=== PATIENT | male | born 2000 | race Caucasian/White ===

== ENCOUNTER 2024-12-06 00:56 | Emergency (ER) | payer MEDICAID, SELFPAY ==
--- NOTE | ~2024-12-06 | CT_ITS ---
Non-contrast Head CT History: Paresthesias Technique: Axial non-contrast imaging of the brain was performed. Dose reduction technique was used on this scan by utilizing automated exposure control and iterative reconstruction technique. The dose -length product (DLP) was 756.67 mGy-cm. Findings: There is no evidence of intracranial hemorrhage, mass lesion, or acute infarct. Brain par enchyma appears normal. The ventricles and subarachnoid spaces are normal in size. The calvarium ap pears normal. The visualized paranasal sinuses and mastoid air cells are clear. Impression: No significant abnormality seen. Reviewed, dictated and finalized at location . Impression: No significant abnormality seen.
[2024-12-06 00:57] VITALS: BP 140/82; PULSE 69; RESP 14; TEMP 36.8; O2SAT 99
--- NOTE | 2024-12-06 01:26 | ED_ITS ---
HPI - General Adult General Chief complaint: Recheck/Abnormal Lab/Rx Stated complaint: MS Flare- left arm numb Time Seen by Provider: 12/06/24 01:26 History of Present Illness HPI narrative: This is a 24-year-old male with history multiple sclerosis presenting for paresthesias. Patient states over over last 5 days he has been having brief episodes of numbness over his left leg and left arm. The areas of numbness or small patches and do not follow a dermatomal distribution. He does not have any visual changes, difficulty urinating or weakness to any extremity. Patient has a neurologist to follows with but was unable to reach him today. Patient is not happy with neurologist is requesting a new neurologist. Patient was seen at [facility] earlier today but left because the wait was too long. Exam Narrative: APPEARANCE: No apparent distress. Head: atraumatic. EYES: EOMI, NOSE: Atraumatic NECK: Trachea midline RESPIRATORY: No increased rate of breathing, speaking in full sentences. CARDIOVASCULAR: RRR, ABDOMINAL: Non-distended MUSCULOSKELETAl: No obvious deformities NEURO: Alert. Cranial nerves 2-12 grossly intact. motor function cerebellar function intact for 4 extremities. Patient has small patches of numbness over the left dorsal forearm. Decreased sensation over the left leg. Gait exam was normal. SKIN:: Warm, dry. Normal color PSYCHIATRIC: Normal affect Course Vital Signs Vital signs: Vital Signs Temperature 98.2 F 12/06/24 00:57 Pulse Rate 69 12/06/24 00:57 Respiratory Rate 14 12/06/24 00:57 Blood Pressure 140/82 12/06/24 00:57 Pulse Oximetry 99 12/06/24 00:57 Oxygen Delivery Room Air 12/06/24 00:57 Temperature 98.2 F 12/06/24 00:57 Pulse Rate 69 12/06/24 00:57 Respiratory Rate 14 12/06/24 00:57 Blood Pressure 140/82 12/06/24 00:57 Pulse Oximetry 99 12/06/24 00:57 Oxygen Delivery Room Air 12/06/24 00:57 Medical Decision Making [facility] Narrative Medical decision making narrative: -Course: 24-year-old male history of MS presenting for paresthesias of the left arm and leg. Mildly decreased sensation in the exam. Motor function intact. The rest of his neurologic exam was also normal. I reviewed the lab work that he obtained at [facility] including a CBC, CMP phosphorus magnesium and TSH in all were within normal limits. CT head was obtained which negative for any acute process. Patient will be discharged with a Medrol Dosepak see if improves his symptoms. He has requested referral to a neurologist as he does not get along with his current doctor. This was provided. Patient given return precautions. -DDX includes but is not limited to: MS flare, peripheral neuropathy, intracranial hemorrhage -Co-morbidities complicating care: MS -External Chart Review: Review of laboratory studies from [facility], review of MRI from September 2024 Vital Signs Vital Signs: Vital Signs Temperature 98.2 F 12/06/24 00:57 Pulse Rate 69 12/06/24 00:57 Respiratory Rate 14 12/06/24 00:57 Blood Pressure 140/82 12/06/24 00:57 Pulse Oximetry 99 12/06/24 00:57 Oxygen Delivery Room Air 12/06/24 00:57 Temperature 98.2 F 12/06/24 00:57 Pulse Rate 69 12/06/24 00:57 Respiratory Rate 14 12/06/24 00:57 Blood Pressure 140/82 12/06/24 00:57 Pulse Oximetry 99 12/06/24 00:57 Oxygen Delivery Room Air 12/06/24 00:57 Discharge Plan Discharge Clinical Impression: Arm paresthesia, left, Leg paresthesia Patient Disposition: Home Condition: Stable Instructions: Antibiotic Form, Paresthesia (ED) Additional Instructions: Please take the Medrol Dosepak as instructed. Please follow-up with your neurologist with the neurologist listed below for further management. If you develop any new or worsening symptoms you can return to ED for re-evaluation. Patient Language: Wolof Prescriptions: New methylprednisolone [Medrol (Can)] 4 mg tablets,dose pack See Rx Instructions .ROUTE .COMPLEX Qty: 21 0RF Rx Instructions: for 6 days Follow-up/Referrals: Jessica Juarez MD [Physician] - 1 Week (MS patient. Seeking new neurologist) PHYSICIAN,DIRECTOR INSTRUCTIONAL MATERIAL [Primary Care Provider] -
--- OUTSIDE RECORDS SUMMARY | 2024-12-06 01:59 | XMS_ITS | Referral Summary ---
Author Organization [facility] Physician Office Building [address] [place] [id number] Care Team Providers Care Fact Checker Name Role Phone Sherley ROMEO MD, Edson MontoyaAbdirizak Unavailable Dago Colunga MD Primary Care Provide r Encounters Date Type Department Care Team Description 12/05/2024 11:45 PM CDT - 12/05/2024 11:46 PM CDT Emergency [facility] Emergency Department [address] [place] [id number] Discharge Disposition: Left Against Medical Advice 12/05/2024 Nurse Triage Family Care at [address] [place] [phone] Dago Colunga MD 11/27/2024 3:20 PM CDT [facility] [address] [place] [address] Medical Office Building [address] [place] [phone] Nica Kim NP Tinnitus, unspecified laterality (Primary Dx); Multiple sclerosis (HCC); Stress 11/27/2024 2:45 PM CDT Procedure visit [facility] Otolaryngology [address] [place] [address] Medical Office Building 2 [address] [place] [address] Estrada Alaniz Au.D. Dizziness 09/22/2024 10:06 AM LABORATORY CLERK - 09/22/2024 11:59 PM LABORATORY CLERK Hospital Encounter [facility] Radiology [address] [place] [address] Edson Lepe II, MD Multiple sclerosis (HCC) Discharge Disposition: Discharge to home or self care 09/18/2024 Telephone [facility] [address] [facility] [address] [place] [address] Edson Lepe II, MD MRI Authorization 09/15/2024 Orders Only [facility] Otolaryngology [address] [facility] Advanced Medicine 11th [place] [address] [place] [address] Meghan Deal Au.D. Dizziness (Primary Dx) 09/15/2024 Telephone [facility] Otolaryngology [address] [facility] 11th [place] [address] [place] [address] Meghan Deal Au.D. 09/13/2024 Telephone [facility] ENT [address] [facility] 11th [place] [address] [place] [address] Neal, Elicia, from Last 3 Months Allergies Active Allergy Reactions Criticality Noted Date Comments Cat Dander Sneezing Low 07/14/2021 Dog Dander Sneezing Low 07/14/2021 House Dust Sneezing Low 07/14/2021 Pollen Extracts Sneezing Low 07/14/2021 Spider Venom Rash Medium 07/14/2021 Venom-Wasp Shortness of breath High 07/14/2021 Medications teriflunomide 14 mg tabletIndication s:relapsing form of multiple sclerosis Take 1 tablet (14 mg total) by mouth daily 90 tablet 2 02/23/2024 Active omega 1-zko-hxg-fish oil (Fish OiL) 1,000 (120-180) mg capsule Take by mouth daily Active cholecalciferol, vitamin D3, 1,000 unit tablet,chewable Take 1 tablet/chew tab by mouth daily Active Active Problems Problem Noted Date Diagnosed Date Obesity (BMI 30-39.9) 08/21/2024 Assessment & Plan (08/21/2024 8:54 AM LABORATORY CLERK): BMI follow-up: Education provided Encounter for well adult exam without abnormal f indings 02/17/2022 Assessment & Plan (02/17/2022 9:33 PM CDT): Reviewed current problem list and reconciled Meds. Patient is up-to-date on his immunizations. Multiple sclerosis 05/29/2021 Assessment & Plan (08/21/2024 8:54 AM LABORATORY CLERK): Management by Neurology teriflunomide 14 mg tablet daily Assessment & Plan (02/17/2023 9:45 PM CDT): Patient under the care of neurologist. However patient has been out his current Meds due to cost and loss of insurance coverage. Discussed referral to MS clinic at [facility]. Patient reports episodes of weakness due to lack of Meds. Assessment & Plan (02/17/2022 9:35 PM CDT): Patient under the care of neurologist. Reviewed current Meds. Vision disturbance 05/28/2021 Assessment & Plan (02/17/2022 9:34 PM CDT): Patient under the care of blast furnace keeper helper. Immunizations Immunization Administration Dates Next Due Influenza, Quadrivalent, Spl it, Preservative Free, Intramuscular 07/25/2023,07/22/2022,05/31/2021 Influenza, Unspecified 03/22/2024 Meningococcal B, unspecified 03/10/2018 Moderna SARS-CoV-2 Monovalen t Vaccination (12+ YRS) 08/13/2021 Tdap 07/22/2022 Varicella 03/10/2018,06/27/2013 Social History Tobacco Use Types Packs/Day Years Used Date Smoking Tobacco: Never Smokeless Tobacco: Never Tobacco Cessation:Counseling Given: Not Answered Alcohol Use Standard Drinks/Week Comments No 0 (1 standard drink = 0.6 oz pur e alcohol) Social Connection and Isolation Panel [NHANES] A nswer Date Recorded In a typical week, how many times do you talk on the phone with family, friends, or neighbors? Once a week 06/01/2021 How often do you get together with friends or re latives? Once a week 06/01/2021 How often do you attend adventist or buddhist serv ices? Never 06/01/2021 Do you belong to any clubs o r organizations such as adventist groups, unions, fraternal or athletic groups, or school groups? No 06/01/2021 How often do you attend meet ings of the clubs or organizations you belong to? Never 06/01/2021 Marital Status Not on file 06/01/2021 AUDIT-C Answer Date Recorded Q1: How often do you have a drink containing alcohol? Never 02/17/2023 Q2: How many drinks containi ng alcohol do you have on a typical day when you are drinking? Patient does not drink Q3: How often do you have si x or more drinks on one occasion? Never 02/17/2023 Overall Financial Resource Strain (CARDIA) Answe r Date Recorded How hard is it for you to pa y for the very basics like food, housing, medical care, and heating? Not very hard 06/01/2021 PHQ-2 Answer Date Recorded PHQ-2 Total Score 0 08/21/2024 Hunger Vital Sign Answer Date Recorded Within the past 12 months, y ou worried that your food would run out before you got the money to buy more. Never true 06/01/20 21 Within the past 12 months, t he food you bought just didn't last and you didn't have money to get more. Never true 06/01/2021 PRAPARE - Transportation Answer Date Re corded In the past 12 months, has l ack of transportation kept you from medical appointments or from getting medications? No 05/15 In the past 12 months, has l ack of transportation kept you from meetings, work, or from getting things needed for daily living? No 06/01/2021 Housing Stability Vital Sign Answer Bladimir e Recorded In the last 12 months, was t here a time when you were not able to pay the mortgage or rent on time? No 06/01/2021 Number of Places Lived in the Last Year Not on f ile 06/01/2021 In the last 12 months, was t here a time when you did not have a steady place to sleep or slept in a longterm (including now)? No 06/01/2021 PHQ-9 Answer Date Recorded PHQ-9 Total Score 0 08/21/2024 Personal Safety Answer Date Recorded Have you ever been in or are you currently in a harmful physical or emotional relationship or is someone making you feel afraid or unsafe? Denies 12/05/2024 Sex and Gender Information Value Date Recorded Sex Assigned at Not on file Legal Sex Male 9:21 AM LABORATORY CLERK Gender Identity Male 07/14/2021 9:18 AM LABORATORY CLERK Sexual Orientation Straight 07/14/2021 9: 18 AM LABORATORY CLERK Last Filed Vital Signs Vital Sign Reading Time Taken Comments Blood Pressure 130/71 12/05/2024 6:32 PM CDT Pulse 78 12/05/2024 6:32 PM CDT Temperature 36.7 C (98.1 F) 12/05/2024 6:32 PM CDT Respiratory Rate 20 12/05/2024 6:32 PM CDT Oxygen Saturation 98% 12/05/2024 6:32 PM CDT Inhaled Oxygen Concentration - - Weight 117.9 kg (260 lb) 12/05/2024 6:36 PM CDT Height 190.5 cm (6' 3 ) 12/05/2024 6:36 PM CDT Body Mass Index 32.5 12/05/2024 6:36 PM CDT Plan of Treatment Not on file Procedures Procedure Name Priority Date/Time Associated Diagnosis Comments EGFR STAT 12/05/2024 10:00 PM CDT DIFFERENTIAL AUTO STAT 12/05/2024 10: 00 PM CDT THYROID FUNCTION CASCADE STAT 12/05/2024 10:00 PM CDT PHOSPHORUS Routine 12/05/2024 10:00 PM CDT MAGNESIUM Routine 12/05/2024 10:00 PM CDT COMPREHENSIVE METABOLIC PANEL STAT 12/05/2024 10:00 PM CDT CBC WITH AUTO DIFFERENTIAL STAT 12/05/2024 10:[address] HEAD WO CONTRAST ED 12/05/2024 6 :39 PM CDT AUDBASE RESULTS 11/27/2024 2:54 PM CDT MRI BRAIN W WO CONTRAST Schedule Routine, Read Routine (OP Routine) 09/22/2024 11:08 AM LABORATORY CLERK Multiple sclerosis (HCC) HEPATITIS PANEL, ACUTE Routine 07/14/2021 10:25 AM LABORATORY CLERK Multiple sclerosis (HCC) from Last 3 Months or Most Recently Relevant to Health Maintenance Results * eGFR (12/05/2024 10:00 PM CDT) eGFR >90 >=60 mL/min/1. 73 m2 Comment: Interpretive Data Reference Interval Normal >/= 90 mL/min/1.73m2 Mildly decreased* 60 - 89 mL/min/1.73m2 Mildly to moderately decreased 45 - 59 mL/min/1.73m2 Moderately to severely decreased 30 - 44 mL/min/1.73m2 Severely decreased 15 - 29 mL/min/1.73m2 Kidney Failure < 15 mL/min/1.73m2 *Relative to young adult level Estimated glomerular filtration rate is determined by the 2020 CKD-EPI equation recommended by the National Kidney Foundation (A Unifying Approach to GFR Estimation: Recommendations of the NKF-ASK Task Force on Reassessing the Inclusion of Race in Diagnosing Kidney Disease, JASN 2020). The CKD-EPI equation should not be used for patients with unstable renal function and has not been validated in children and those over 70. Current interpretive data was last reviewed 2021. Blood 12/05/2024 10:0 0 PM CDT 12/05/2024 10:00 PM CDT us Johan COFFEY LAB BLOOD ORDERABLES Final Result JAYLEEN [address] Department [place] [address] * Differential, auto (12/05/2024 10:00 PM CDT) Neutrophil abs 4.26 1.50 - 6.50 K/cumm Imm gran abs 0.01 0.00 - 0.10 K/cumm [facility] Lymphocyte abs 2.86 0.80 - 3.30 K/cumm [facility] Monocyte abs 0.71 0.20 - 0.80 K/cumm [facility] Eosinophil abs 0.08 0.00 - 0.50 K/cumm [facility] Basophil abs 0.02 0.00 - 0.10 K/cumm [facility] Neutrophil pct 53.7 % [facility] Comment: Interpretive Data Percent cell count reference ranges are not reported, since discordance with absolute values may lead to misinterpretation of CBC data. Current Interpretive Data was last revised on 2017. Imm gran pct 0.1 % [facility] Comment: Interpretive Data Percent cell count reference ranges are not reported, since discordance with absolute values may lead to misinterpretation of CBC data. Current Interpretive Data was last revised on 2017. Lymphocyte pct 36.0 % [facility] Comment: Interpretive Data Percent cell count reference ranges are not reported, since discordance with absolute values may lead to misinterpretation of CBC data. Current Interpretive Data was last revised on 2017. Monocyte pct 8.9 % [facility] Comment: Interpretive Data Percent cell count reference ranges are not reported, since discordance with absolute values may lead to misinterpretation of CBC data. Current Interpretive Data was last revised on 2017. Eosinophil pct 1.0 % [facility] Comment: Interpretive Data Percent cell count reference ranges are not reported, since discordance with absolute values may lead to misinterpretation of CBC data. Current Interpretive Data was last revised on 2017. Basophil pct 0.3 % [facility] Comment: Interpretive Data Percent cell count reference ranges are not reported, since discordance with absolute values may lead to misinterpretation of CBC data. Current Interpretive Data was last revised on 2017. Blood 12/05/2024 10:0 0 PM CDT 12/05/2024 10:00 PM CDT Johan COFFEY LAB BLOOD ORDERABLES Final Result JAYLEEN [address] [place] [address] * Thyroid Function [place] (12/05/2024 10:00 PM CDT) Pathologist [facility] TSH 1.00 0.30 - 4.20 mcIUnit/mL Blood 12/05/2024 10:0 0 PM CDT 12/05/2024 10:00 PM CDT Johan COFFEY LAB BLOOD ORDERABLES Final Result Performing Organization Address City/[facility]/ZIP Co de Phone Number JAYLEEN LEAL [address] [place] [address] * CBC with auto differential (12/05/2024 10:00 PM CDT) Pathologist [facility] WBC 7.94 3.80 - 9.90 K/cumm Hgb 14.3 13.0 - 17.5 g/dL [facility] CH Hct 42.1 38.9 - 50.3 % [facility] Plt 250 150 - 400 K/cumm [facility] MPV 10.2 9.1 - 12.3 fL [facility] CH RBC 4.74 4.30 - 5.80 M/cumm [facility] MCV 88.8 81.3 - 96.4 fL [facility] MCH 30.2 27.1 - 33.3 pg [facility] MCHC 34.0 32.3 - 35.7 g/dL [facility] RDW CV 11.5 11.1 - 14.9 % [facility] CH RDW SD 36.7 35.7 - 48.1 fL [facility] CH NRBC abs 0.00 0.00 - 0.01 K/cumm [facility] Blood Venous blood specimen / Unknown 12/05/2024 10:00 PM CDT 12/05/2024 10:00 PM CDT Johan COFFEY LAB BLOOD ORDERABLES Final Result Performing Organization Address City/[facility]/ZIP Co de Phone Number JAYLEEN LEAL [address] [place] [address] * Phosphorus (12/05/2024 10:00 PM CDT) [facility] Phosphorus, pl 3.7 2.3 - 4.5 mg/dL Blood 12/05/2024 10:0 0 PM CDT 12/05/2024 10:00 PM CDT Johan COFFEY LAB BLOOD ORDERABLES Final Result Performing Organization Address City/[facility]/ZIP Co de Phone Number JAYLEEN [id number] [facility] [place] [address] * Magnesium (12/05/2024 10:00 PM CDT) [facility] Magnesium 2.2 1.4 - 2.5 mg/dL Blood 12/05/2024 10:0 0 PM CDT 12/05/2024 10:00 PM CDT Johan COFFEY LAB BLOOD ORDERABLES Final Result Performing Organization Address [facility] de Phone Number [facility] [address] [facility] [place] [address] * Comprehensive metabolic panel (12/05/2024 10:00 PM CDT) [facility] Sodium 140 135 - 145 mmol/L Potassium, pl 4.4 3.3 - 4.9 mmol/L [facility] Chloride 104 97 - 110 mmol/L [facility] CO2 24 22 - 32 mmol/L [facility] Anion gap 12 2 - 15 mmol/L [facility] BUN 21 6 - 25 mg/dL [facility] Creatinine 0.95 0.80 - 1.30 mg/dL [facility] Glucose 92 70 - 199 mg/dL [facility] Comment: Interpretive Data Fasting glucose >/= 126 mg/dl is diagnostic for diabetes. Fasting is defined as no caloric intake for at least 8 hours. Fasting glucose between 100 mg/dl to 125 mg/dl is diagnostic of prediabetes. In a patient with classic symptoms of hyperglycemia or hyperglycemic crisis, a random glucose >/= 200 mg/dl is diagnostic for diabetes. In the absence of unequivocal hyperglycemia, results should be confirmed by repeat testing. The classification and Diagnosis of Diabetes Diabetes Care 202; 46: S19-S40. Current interpretive data was last revised 2022. Calcium 9.6 8.5 - 10.3 mg/dL [facility] Bilirubin, total 0.7 0.1 - 1.2 mg/dL [facility] Protein, pl 7.3 6.5 - 8.5 g/dL [facility] Albumin 4.4 3.5 - 5.0 g/dL [facility] Alk phos 84 40 - 130 Units/L [facility] ALT 16 7 - 55 Units/L [facility] AST 19 10 - 50 Units/L [facility] Blood 12/05/2024 10:0 0 PM CDT 12/05/2024 10:00 PM CDT us Johan COFFEY LAB [place] [address] [address] Department [place] [address] * CT Head WO Contrast (12/05/2024 6:39 PM CDT) Anatomical Region Laterality Modality Head and Neck N/A Computed Tomogra phy 12/05/2024 6:55 PM CDT Impressions 12/05/2024 6:55 PM CDT No acute intracranial findings. Electronically signed by: Johan Castellanos II, D.O. Narrative 12/05/2024 6:55 PM CDT EXAMINATION: CT HEAD WO CONTRAST DATE: 12/05/2024 6:40 PM HISTORY: Paresthesias. COMPARISON: MRI of the brain dated 09/22/2024. TECHNIQUE: Transaxial computed tomographic images of the head were obtained without intravenous contrast. FINDINGS: No mass, mass effect, midline shift, or hemorrhage is demonstrated. Rincon-white differentiation is well preserved. No ventriculomegaly. The orbits and mastoid air cells are normal in appearance. Mild chronic mucosal inflammatory changes of the paranasal sinuses. Extracalvarial soft tissues are unremarkable. Procedure Note Johan Castellanos II, - 12/05/2024 EXAMINATION: CT HEAD WO CONTRAST DATE: 12/05/2024 6:40 PM HISTORY: Paresthesias. COMPARISON: MRI of the brain dated 09/22/2024. TECHNIQUE: Transaxial computed tomographic images of the head were obtained without intravenous contrast. FINDINGS: No mass, mass effect, midline shift, or hemorrhage is demonstrated. Rincon-white differentiation is well preserved. No ventriculomegaly. The orbits and mastoid air cells are normal in appearance. Mild chronic mucosal inflammatory changes of the paranasal sinuses. Extracalvarial soft tissues are unremarkable. IMPRESSION: No acute intracranial findings. Electronically signed by: Johan Castellanos II, D.O. Johan COFFEY IMG CT PROCEDURES Final Re sult * [employer] Results (11/27/2024 2:54 PM CDT) Provider Scanning AUDIOLOGY SERVICES ORDERABLES Final Result * MRI Brain W WO Contrast (09/22/2024 11:08 AM LABORATORY CLERK) Anatomical Region Laterality Modality Head and Neck N/A Magnetic Resonan ce 09/24/2024 10:3 4 AM LABORATORY CLERK Impressions 09/24/2024 10:34 AM LABORATORY CLERK Stable appearance with multiple White matter lesions without new lesions. Areas of completed demyelination. Enhancement of the clara stable since previous with area of old hemorrhage in the clara unchanged. Electronically signed by: Prem Mai M.D. Narrative 09/24/2024 10:34 AM LABORATORY CLERK EXAMINATION: MRI BRAIN W WO CONTRAST HISTORY: 23-year-old man diagnosis of multiple sclerosis for follow-up. Visual disturbances TECHNIQUE: Multiplanar multisequence spin-echo images obtained. Following administration of 20 mL of gadolinium based contrast repeat T1-weighted images obtained. FINDINGS: Correlation is made with multiple priors most recently dated 03/20/2024. Precontrasted T1-weighted images demonstrate stable ventricular size and sulci configuration. No midline shift or mass effect. Areas of completed demyelination seen in the centrum semi-Armstrong bilaterally. FLAIR images demonstrate areas of T2 hyperintensity in the periventricular deep white matter the largest in the centrum semi-Armstrong bilaterally particularly in the right parietal deep white matter. When compared with previous, similar distribution number and size of lesions. Temporal lobe lesions are again seen unchanged. No new lesions identified. Sagittal FLAIR images confirm the lesions centered about the corpus callosum. There is a seen in the sagittal images, pontine lesion unchanged since previous. T2-weighted images demonstrate normal flow voids within the [place]. Normal rincon-white matter differentiation. Multiple White matter lesions identified. Deep venous sinuses appear to be patent. Susceptibility images once again demonstrate a straight moderate blood degradation products involving the central and ventral clara. No additional areas of previous hemorrhage are suggested. Contrast administration once again demonstrate enhancement within the clara in the area of previous hemorrhage unchanged since previous. No additional abnormal areas of enhancement are detected. Procedure Note Prem Mai MD - 09/24/2024 EXAMINATION: MRI BRAIN W WO CONTRAST HISTORY: 23-year-old man diagnosis of multiple sclerosis for follow-up. Visual disturbances TECHNIQUE: Multiplanar multisequence spin-echo images obtained. Following administration of 20 mL of gadolinium based contrast repeat T1-weighted images obtained. FINDINGS: Correlation is made with multiple priors most recently dated 03/20/2024. Precontrasted T1-weighted images demonstrate stable ventricular size and sulci configuration. No midline shift or mass effect. Areas of completed demyelination seen in the centrum semi-Armstrong bilaterally. FLAIR images demonstrate areas of T2 hyperintensity in the periventricular deep white matter the largest in the centrum semi-Armstrong bilaterally particularly in the right parietal deep white matter. When compared with previous, similar distribution number and size of lesions. Temporal lobe lesions are again seen unchanged. No new lesions identified. Sagittal FLAIR images confirm the lesions centered about the corpus callosum. There is a seen in the sagittal images, pontine lesion unchanged since previous. T2-weighted images demonstrate normal flow voids within the [place]. Normal rincon-white matter differentiation. Multiple White matter lesions identified. Deep venous sinuses appear to be patent. Susceptibility images once again demonstrate a straight moderate blood degradation products involving the central and ventral clara. No additional areas of previous hemorrhage are suggested. Contrast administration once again demonstrate enhancement within the clara in the area of previous hemorrhage unchanged since previous. No additional abnormal areas of enhancement are detected. IMPRESSION: Stable appearance with multiple White matter lesions without new lesions. Areas of completed demyelination. Enhancement of the clara stable since previous with area of old hemorrhage in the clara unchanged. Electronically signed by: Prem Mai M.D. Edson Lepe II, MD IMG MRI PROCEDURES Final Res ult * Hepatitis panel, acute (07/14/2021 10:25 AM LABORATORY CLERK) Hep A IgM Nonreactive Nonreactive [facility] Comment: Interpretive Data: If Hep A IgM Ab is reported as Equivocal, a new sample should be drawn in two weeks for testing. Current interpretive data was last revised on 19. Hep B core IgM Nonreactive Nonreactive [facility] Comment: Interpretive Data If HepB Core IgM Ab is reported as Equivocal, a new sample should be drawn in two weeks for testing. Current interpretive data was last revised on 19. Hep C Ab Nonreactive Nonreactive [facility] Comment: Interpretive Data Nonreactive: Antibodies to HCV not detected. Does NOT exclude the possibility of recent exposure to HCV. Equivocal: Equivocal for HCV antibodies. Supplemental molecular testing will be automatically performed to determine infection status in accordance with current CDC screening recommendations. Reactive: Positive for HCV antibodies. This may represent current or past HCV infection. Supplemental molecular testing will be automatically performed to determine current infection status in accordance with current CDC screening recommendations. Interpretive data was last revised on 2019. HepBsAg Nonreactive Nonreactive [facility] Blood 07/14/2021 10:2 5 AM LABORATORY CLERK 07/14/2021 3:26 PM LABORATORY CLERK Edson Lepe II, MD LAB MICROBIOLOGY - GENERAL O RDERABLES Final Result [facility] [address] [place] [address] from Last 3 Months or Most Recently Relevant to Health Maintenance Insurance [facility] [address] [address] [facility] [address] [employer] [place] [id number] [facility] [address] [facility] [address] [employer] [place] [id number] [facility] Advance Directives For more information, please contact: [phone] * Full Code (Latest Code Status on File) Date Activated Date Inactivated Comments 05/29/2021 1:10 AM 06/03/2021 10:16 PM Care Teams Fact Checker Relationship Specialty [place] [id number] [address] PCP - General Family Medicine 07/25/23 [place] [address] [facility] [address] [place] [address] Consulting Physician Neurology 06/03/21
--- OUTSIDE RECORDS SUMMARY | 2024-12-06 01:59 | XMS_ITS | Clinical Summary ---
Author Organization [facility] Physician Office Building [address] [place] [id number] Care Team Providers Care President College Or [employer] Name Role Phone Sherley ROMEO MD, Edson Dubose Unavailable [phone] Dago Colunga MD Primary Care Provide r Allergies Active Allergy Reactions Criticality Noted Date [...] daily 90 tablet 2 02/23/2024 Active omega 1-kqy-cos-fish oil (Fish OiL) 1,000 (120-180) mg capsule Take by mouth daily Active cholecalciferol, vitamin D3, 1,000 unit tablet,chewable Take 1 tablet/chew tab by mouth daily Active Active Problems Problem Noted Date Diagnosed Date Obesity (BMI 30-39.9) 08/21/2024 Assessment & Plan (08/21/2024 8:54 AM GRINDER HAND): BMI follow-up: Education provided Encounter for well adult exam without abnormal f indings 02/17/2022 Assessment & Plan (02/17/2022 9:33 PM CDT): Reviewed current problem list and reconciled Meds. Patient is up-to-date on his immunizations. Multiple sclerosis 05/29/2021 Assessment & Plan (08/21/2024 8:54 AM GRINDER HAND): Management by Neurology teriflunomide 14 mg tablet daily Assessment & Plan (02/17/2023 9:45 PM CDT): Patient under the care of neurologist. However patient has been out his current Meds due to cost and loss of insurance coverage. Discussed referral to MS clinic at [facility]. Patient reports episodes of weakness due to lack of Meds. Assessment & Plan (02/17/2022 9:35 PM CDT): Patient under the care of neurologist. Reviewed current Meds. Vision disturbance 05/28/2021 Assessment & Plan (02/17/2022 9:34 PM CDT): Patient under the care of edging machine feeder. Encounters Date Type Department Care Team Description 12/05/2024 11:45 PM CDT - 12/05/2024 11:46 PM CDT Emergency [facility] Emergency Department [address] [place] [address] Discharge Disposition: Left Against Medical Advice 12/05/2024 Nurse Triage Family Care at [address] [place] [address] Dago Colunga MD 11/27/2024 3:20 PM CDT [facility] [id number] [place] [address] Medical Office Building [address] [place] [address] Nica Kim NP Tinnitus, unspecified laterality (Primary Dx); Multiple sclerosis (HCC); Stress 11/27/2024 2:45 PM CDT Procedure visit [facility] Otolaryngology [address] [place] [address] Medical Office Building [address] [place] [address] Estrada Alaniz Au.D. Dizziness 09/22/2024 10:06 AM GRINDER HAND - 09/22/2024 11:59 PM GRINDER HAND Hospital Encounter [facility] Imaging and Radiology [address] [place] [address] Edson Lepe II, MD Multiple sclerosis (HCC) Discharge Disposition: Discharge to home or self care 09/18/2024 Telephone [facility] [address] [facility] [address] [place] [address] Edson Lepe II, MD MRI Authorization 09/15/2024 Orders Only [facility] Otolaryngology [address] [facility] [address]th [place] [address] [place] [address] Meghan Deal Au.D. Dizziness (Primary Dx) 09/15/2024 Telephone [facility] Otolaryngology [address] [facility] [address]th [place] [address] [place] [address] Meghan Deal Au.D. 09/13/2024 Telephone [facility] Advanced [facility] ([facility] ENT [address] [facility] [address]th [place] [address] [place] [address] Elicia Neal MS from Last 3 Months Immunizations Immunization Administration Dates Next Due Influenza, Quadrivalent, Spl it, Preservative Free, Intramuscular 07/25/2023,07/22/2022,05/31/2021 Influenza, Unspecified 03/22/2024 Meningococcal B, unspecified 03/10/2018 Moderna SARS-CoV-2 Monovalen t Vaccination (12+ YRS) 08/13/2021 Tdap 07/22/2022 Varicella 03/10/2018,06/27/2013 Surgical History Surgery Date Site/Laterality Comments [place] FLUORO GUIDED LUMBAR PUNCTURE 05/29/2021 Right Medical History Medical History Date Comments Allergic Multiple sclerosis (HCC) Autoimmune disease June of 2021 Family History Medical History Relation Name Comments Hypertension Father Johnny Grimaldo Diabetes Mother Socorro Dubon Prostate cancer Other Relation Name Status Comments Father Johnny Girmaldo Alive Mother Socorro Dubon Alive Other Social History Tobacco Use Types Packs/Day Years [...] week 06/01/2021 How often do you attend jain or shinto serv ices? Never 06/01/2021 Do you belong to any clubs o r organizations such as jain groups, unions, fraternal or athletic groups, or [...] place to sleep or slept in a [place] facility (including now)? No 06/01/2021 PHQ-9 Answer Date Recorded PHQ-9 Total Score 0 08/21/2024 Personal Safety Answer Date Recorded Have you ever been in or are you currently in a harmful physical or emotional relationship or is someone making you feel afraid or unsafe? Denies 12/05/2024 Sex and Gender Information Value Date Recorded Sex Assigned at Not on file Legal Sex Male 9:21 AM GRINDER HAND Gender Identity Male 07/14/2021 9:18 AM GRINDER HAND Sexual Orientation Straight 07/14/2021 9: 18 AM GRINDER HAND Obstetrics History Last Filed Vital Signs Vital Sign Reading [...] 12/05/2024 6:36 PM CDT Plan of Treatment Health Maintenance Due Date Last Done Comments HPV Vaccines (1 - Male 3-dose series) 12/06/2014 Covid-19 Vaccine ( - season) 2024 08/13/2021 Depression Screening 08/21/2025 08/21/2024, 08/21/2024, 07/25/2023, Additional history exists Regular Well Visit/Exam 18-64 08/21/2025 08/21/2024, 07/25/2023, 02/17/2023, Additional history exists DTaP/Tdap/Td Vaccine (2 - Td or Tdap) 07/22/2032 07/22/2022 Varicella Vaccines Discontinued 03/10/2018, 06/27/2013 Hepatitis C Screening Completed 07/14/2021 Influenza Vaccine Completed 03/22/2024, , 07/22/2022, Additional history exists Hepatitis B Screening Completed 08/21/2024 Pneumococcal vaccine <65 Aged Out No longer eligible based on patient's age to complete this topic Procedures Procedure Name Priority Date/Time Associated Diagnosis [...] Read Routine (OP Routine) 09/22/2024 11:08 AM GRINDER HAND Multiple sclerosis (HCC) HEPATITIS PANEL, ACUTE Routine 07/14/2021 10:25 AM GRINDER HAND Multiple sclerosis (HCC) from Last 3 Months [...] COFFEY LAB BLOOD ORDERABLES Final Result JAYLEEN [address] [address] [place] [address] * Differential, auto (12/05/2024 10:00 PM CDT) Neutrophil abs 4.26 1.50 - 6.50 K/cumm Imm gran abs 0.01 0.00 - 0.10 K/cumm [facility] Lymphocyte abs 2.86 0.80 - 3.30 K/cumm [facility] Monocyte abs 0.71 0.20 - 0.80 K/cumm [facility] Eosinophil abs 0.08 0.00 - 0.50 K/cumm [facility] Basophil abs 0.02 0.00 - 0.10 K/cumm [facility] Neutrophil pct 53.7 % JAYLEEN Comment: Interpretive Data Percent cell count reference ranges are not reported, since discordance with absolute values may lead to misinterpretation of CBC data. Current Interpretive Data was last revised on 2017. Imm gran pct 0.1 % JAYLEEN Comment: Interpretive Data Percent cell count reference ranges are not reported, since discordance with absolute values may lead to misinterpretation of CBC data. Current Interpretive Data was last revised on 2017. Lymphocyte pct 36.0 % C[facility]ER Comment: Interpretive Data Percent cell count reference ranges are not reported, since discordance with absolute values may lead to misinterpretation of CBC data. Current Interpretive Data was last revised on 2017. Monocyte pct 8.9 % [facility] Comment: Interpretive Data Percent cell count reference ranges are not reported, since discordance with absolute values may lead to misinterpretation of CBC data. Current Interpretive Data was last revised on 2017. Eosinophil pct 1.0 % [facility] Comment: Interpretive Data Percent cell count reference ranges are not reported, since discordance with absolute values may lead to misinterpretation of CBC data. Current Interpretive Data was last revised on 2017. Basophil pct 0.3 % [facility] Comment: Interpretive Data Percent cell count reference ranges are not reported, since discordance with absolute values may lead to misinterpretation of CBC data. Current Interpretive Data was last revised on 2017. Blood 12/05/2024 10:0 0 PM CDT 12/05/2024 10:00 PM CDT Johan COFFEY LAB BLOOD ORDERABLES Final Result Performing Organization Address City/[facility]/ZIP Co de Phone Number NENAARTIE LEAL [phone] [address] [facility] [place] [address] * Thyroid Function [place] (12/05/2024 10:00 PM CDT) TSH 1.00 0.30 - 4.20 mcIUnit/mL Blood 12/05/2024 10:0 0 PM CDT 12/05/2024 10:00 PM CDT Johan COFFEY LAB BLOOD ORDERABLES Final Result Performing Organization Address City/[facility]/ZIP Co de Phone Number JAYLEEN LEAL [address] [address] Department [place] [address] * CBC with auto differential (12/05/2024 10:00 PM CDT) WBC 7.94 3.80 - 9.90 K/cumm Hgb 14.3 13.0 - 17.5 g/dL [facility] Hct 42.1 38.9 - 50.3 % [facility] Plt 250 150 - 400 K/cumm [facility] MPV 10.2 9.1 - 12.3 fL [facility] RBC 4.74 4.30 - 5.80 M/cumm [facility] MCV 88.8 81.3 - 96.4 fL [facility] MCH 30.2 27.1 - 33.3 pg [facility] MCHC 34.0 32.3 - 35.7 g/dL [facility] RDW CV 11.5 11.1 - 14.9 % [facility] RDW SD 36.7 35.7 - 48.1 fL [facility] NRBC abs 0.00 0.00 - 0.01 K/cumm [facility] Blood Venous blood specimen / Unknown 12/05/2024 10:00 PM CDT 12/05/2024 10:00 PM CDT Johan COFFEY LAB BLOOD ORDERABLES Final Result Performing Organization Address City/[facility]/ZIP Co de Phone Number NENAARTIE LEAL [address] [facility] [place] [address] * Phosphorus (12/05/2024 10:00 PM CDT) Pathologist [facility] Department Phosphorus, pl 3.7 2.3 - 4.5 mg/dL Blood 12/05/2024 10:0 0 PM CDT 12/05/2024 10:00 PM CDT Johan COFFEY LAB BLOOD ORDERABLES Final Result JAYLEEN [address] [address] [facility] [employer] [place], [place] [id number] * Magnesium (12/05/2024 10:00 PM CDT) Pathologist [facility] Department Magnesium 2.2 1.4 - 2.5 mg/dL Blood 12/05/2024 10:0 0 PM CDT 12/05/2024 10:00 PM CDT us Johan COFFEY LAB BLOOD [place] [address] [address] [place] [address] * Comprehensive metabolic panel (12/05/2024 10:00 PM CDT) Sodium 140 135 - 145 mmol/L Potassium, pl 4.4 3.3 - 4.9 mmol/L [facility] Chloride 104 97 - 110 mmol/L [facility] CO2 24 22 - 32 mmol/L [facility] Anion gap 12 2 - 15 mmol/L [facility] BUN 21 6 - 25 mg/dL [facility] Creatinine 0.95 0.80 - 1.30 mg/dL [facility] Glucose 92 70 - 199 mg/dL [facility] Comment: Interpretive Data Fasting glucose >/= 126 [...] COFFEY LAB [place] [address] [place] [address] * CT Head WO Contrast (12/05/2024 6:39 [...] are unremarkable. Procedure Note Johan Castellanos II, DO - 12/05/2024 EXAMINATION: CT HEAD WO CONTRAST [...] * AudBase Results (11/27/2024 2:54 PM CDT) us Provider Scanning AUDIOLOGY SERVICES ORDERABLES Final Result * MRI Brain W WO Contrast (09/22/2024 11:08 AM GRINDER HAND) Anatomical Region Laterality Modality Head and Neck N/A Magnetic Resonan ce 09/24/2024 10:3 4 AM GRINDER HAND Impressions 09/24/2024 10:34 AM GRINDER HAND Stable appearance with multiple White matter lesions without new lesions. Areas of completed demyelination. Enhancement of the clara stable since previous with area of old hemorrhage in the clara unchanged. Electronically signed by: Prem Mai M.D. Narrative 09/24/2024 10:34 AM GRINDER HAND EXAMINATION: MRI BRAIN W WO CONTRAST HISTORY: [...] images demonstrate normal flow voids within the [place]. Normal rincon-white matter differentiation. Multiple [...] images demonstrate normal flow voids within the [place]. Normal rincon-white matter differentiation. Multiple [...] Prem Mai M.D. Edson Lepe II, MD IM MRI PROCEDURES Final Res ult * Hepatitis panel, acute (07/14/2021 10:25 AM GRINDER HAND) Hep A IgM Nonreactive Nonreactive [facility] Comment: Interpretive Data: If Hep A IgM Ab is reported as Equivocal, a new sample should be drawn in two weeks for testing. Current interpretive data was last revised on 19. Hep B core IgM Nonreactive Nonreactive [facility] Comment: Interpretive Data If HepB Core IgM Ab is reported as Equivocal, a new sample should be drawn in two weeks for testing. Current interpretive data was last revised on 19. Hep C Ab Nonreactive Nonreactive [facility] Comment: Interpretive Data Nonreactive: Antibodies to HCV [...] last revised on 2019. HepBsAg Nonreactive Nonreactive JAYLEEN Blood 07/14/2021 10:2 5 AM GRINDER HAND 07/14/2021 3:26 PM GRINDER HAND us Edson Lepe II, MD LAB MICROBIOLOGY - GENERAL O RDERABLES Final Result JAYLEEN [address] [address] [place] [address] from Last 3 Months or Most Recently Relevant to Health Maintenance [place] [place] [address] [facility] Advance Directives For more information, please contact: [phone] * Full Code (Latest Code Status on File) Date Activated Date Inactivated Comments 05/29/2021 1:10 AM 06/03/2021 10:16 PM Care Teams President [employer] Or [employer] Relationship Specialty [place] [address] [address] [facility] [address] [place] [address] PCP - General Family Medicine 07/25/23 [place] [address] [address] [facility] [address] [place] [address] Consulting Physician Neurology 06/03/21
--- OUTSIDE RECORDS SUMMARY | 2024-12-06 01:59 | XMS_ITS | Encounter Summary ---
Author Organization [facility] Healthcare Address [address] [place] [address] Care Team Providers Care Yard Coordinator Name Role Phone Sherley ROMEO MD, Edson Dubose Unavailable [phone] Dago Colunga MD Primary Care Provide r Reason for Visit * Reason Onset Date Comments neuroligic 12/05/2024 neurologic deficit 12/05/2024 Encounter Details Date Type Department Care Team (Late st Contact Info) Description 12/05/2024 Nurse Triage Family Care at [facility] [id number] [address] [place] [address] [facility] [address] [place] [address] Social History Tobacco Use Types Packs/Day Years Used Date Smoking Tobacco: Never Smokeless Tobacco: Never Alcohol Use Standard Drinks/Week Comments No 0 [...] week 06/01/2021 How often do you attend restoration or adventist serv ices? Never 06/01/2021 Do you belong to any clubs o r organizations such as restoration groups, unions, fraternal or athletic groups, or [...] place to sleep or slept in a fci (including now)? No 06/01/2021 PHQ-9 Answer Date Recorded PHQ-9 Total Score 0 08/21/2024 Personal Safety Answer Date Recorded Have you ever been in or are you currently in a harmful physical or emotional relationship or is someone making you feel afraid or unsafe? Denies 12/05/2024 Sex and Gender Information Value Date Recorded Sex Assigned at Not on file Legal Sex Male 9:21 AM ROTARY PLANER SET UP OPERATOR Gender Identity Male 07/14/2021 9:18 AM ROTARY PLANER SET UP OPERATOR Sexual Orientation Straight 07/14/2021 9: 18 AM ROTARY PLANER SET UP OPERATOR documented as of this encounter Miscellaneous Notes * Telephone Encounter - Afia Paula RN - 12/05/2024 1:01 PM CDT Spoke with patient and aunt. Pt states that he had difficulty forming words and sentences yesterday. He was encouraged to go to the ED for further evaluation. States he is going to the ED by his home. He was encouraged to contact the office for a follow up appointment if needed. * Telephone Encounter - Estrella Sandoval RN - 12/05/2024 11:59 AM CDT For the past couple days his left leg and arm feel like falling asleep, just parts of the leg, thigh to long-term down leg, arm, hand, pinky and last 2 fingers. It happens when he gets up and starts walking. He stumbles a little and it goes away after about 30-40 seconds. It has occurred approx over 30 times. It happens even when just sitting or laying in bed. It feels like it happens several timesan hour. Pt also notes he has Multiple Scleroses an has some slurred speech but he is uncertain if it is from the that or wonders if he had a stroke. This is new over the past couple days as well. Ptdoes not have obvious slurred speech at this time noted by RN. Pt can not control left leg movement. He states he is not safe to drive because his left leg is not working and this is new for him. Dueto new changes, intermittent weakness. Numbness and tingling, pt advised to call 911 and proceed toED since he does not have a ride. Pt advised to not drive himself. Will forward to office as FYI Reason for Disposition Sounds like a life-threatening emergency to the triager Protocols used: Neurologic [id number] * Telephone Encounter - Estrella Sandoval RN - 12/05/2024 11:56 AM CDT Regarding: numbness/tingling in left side of the body, some slurred speech ----- Message from Merna Ralph sent at 12/05/2024 11:55 AM CDT ----- Symptom Based Call Chief Complaint(s): numbness/tingling in left side of the body, some slurred speech Duration: Four days What type of symptom(s) is the patient experiencing? Red Flag. Is the patient concerned they are experiencing a medical emergency requiring an ambulance? No Additional Comments: Patient states history of multiple sclerosis and aphasia but that four days ago (Tuesday evening) he started having left side numbness and tingling, and it is worse in left leg. Patient states numbness and tingling comes and goes intermittently but it is also happening upon walking around. Patient states he did have brief right hand numbness a couple days ago. He had concerns maybe a stroke happened but he states he is also unsure if this could be related to medications he is taking, onset of diabetes (patient states family history of diabetes) or if this is multiple sclerosis related. Patient denies any paralysis or drooping of the face but states he is unsure if his current aphasia could be caused from his chronic condition or not. Patient advised he does not feel comfortable driving into office with current symptoms Does message need to be routed? Yes-Action Needed documented in this encounter Plan of Treatment Not on file documented as of this encounter Visit Diagnoses Not on filedocumented in this encounter Care Teams Yard Coordinator Relationship Specialty [place] [id number] [address] [facility] [address] [place] [address] PCP - General Family Medicine 07/25/23 [place] [address] [address] [facility] [address] [place] [address] Consulting Physician Neurology 06/03/21 documented as of this encounter
--- OUTSIDE RECORDS SUMMARY | 2024-12-06 02:00 | XMS_ITS | Encounter Summary ---
Author Organization [facility] Healthcare Address [address] [place] [address] Care Team Providers Care Medical Assistant Internal Medicine Name Role Phone Sherley ROMEO MD, Edson Dubose Unavailable [phone] Dago Colunga MD Primary Care Provide r Reason for Visit * Reason Comments Numbness Left arm and left le g Encounter Details Date Type Department Care Team (Late st Contact Info) Description 12/05/2024 11:45 PM CDT - 12/05/2024 11:46 PM CDT Emergency [facility] Emergency Department [address] [place] [address] Discharge Disposition: Left Against Medical Advice Social History Tobacco Use Types Packs/Day Years [...] week 06/01/2021 How often do you attend sabianism or mandaen serv ices? Never 06/01/2021 Do you belong to any clubs o r organizations such as sabianism groups, unions, fraternal or athletic groups, or [...] on file Legal Sex Male 9:21 AM RADIOLOGY TECHNOLOGIST Gender Identity Male 07/14/2021 9:18 AM RADIOLOGY TECHNOLOGIST Sexual Orientation Straight 07/14/2021 9: 18 AM RADIOLOGY TECHNOLOGIST documented as of this encounter Last Filed Vital Signs Vital Sign Reading [...] Mass Index 32.5 12/05/2024 6:36 PM CDT documented in this encounter Medications at Time of Discharge cholecalciferol, vitamin D3, 1,000 unit tablet,chewable Take 1 tablet/chew tab by mouth daily omega 3-nbf-fkq-fish oil (Fish OiL) 1,000 (120-180) mg capsule Take by mouth daily teriflunomide 14 mg tabletIndications :relapsing form of multiple sclerosis Take 1 tablet (14 mg total) by mouth daily 90 tablet 2 02/23/2024 documented as of this encounter Discharge Disposition Disposition Code Departure Means Destination Comment s Left Against Medical Advice documented in this encounter ED Notes * Letitia Ortiz, SERA - 12/05/2024 6:31 PM CDT Pt comes into the ER with CO having left arm and left leg going numb and speech difficulty with slurring (per family) for the past 5 days. Denies chest pain and sob at this time LKW: 11/29 Hx: MS AOX4 documented in this encounter Miscellaneous Notes * ED Triage Provider Note - Johan Carmona PA - 12/05/2024 6:31 PM CDT Pt with Hx multiple sclerosis here with paresthesias involving upper and lower extremities. Onset 5days ago. Exam: - GCS 15 - clear speech - normal gait - moving all extremities; extremities antigravity and without drift Plan: cbc, cmp, tsh, mg, phos, CT head documented in this encounter Plan of Treatment Not on file documented as of this encounter Procedures Procedure Name Priority Date/Time Associated Diagnosis Comments EGFR STAT 12/05/2024 10:00 PM CDT DIFFERENTIAL AUTO STAT 12/05/2024 10: 00 PM CDT THYROID FUNCTION CASCADE STAT 12/05/2024 10:00 PM CDT CBC WITH AUTO DIFFERENTIAL STAT 12/05/2024 10:00 PM CDT PHOSPHORUS Routine 12/05/2024 10:00 PM CDT MAGNESIUM Routine 12/05/2024 10:00 PM CDT COMPREHENSIVE METABOLIC PANEL STAT 12/05/2024 10:[address] HEAD WO CONTRAST ED 12/05/2024 6 :39 PM CDT documented in this encounter Results * eGFR (12/05/2024 10:00 PM CDT) [...] of Race in Diagnosing Kidney Disease, JASN 2021). The CKD-EPI equation should not be used for patients with unstable renal function and has not been validated in children and those over 70. Current interpretive data was last reviewed 2021. Blood 12/05/2024 10:0 0 PM CDT 12/05/2024 10:00 PM CDT Johan COFFEY LAB BLOOD ORDERABLES Final Result [facility] [address] Department [place] [address] * Differential, auto (12/05/2024 10:00 PM CDT) Neutrophil abs 4.26 1.50 - 6.50 K/cumm Imm gran abs 0.01 0.00 - 0.10 K/cumm [facility] Lymphocyte abs 2.86 0.80 - 3.30 K/cumm [facility] Monocyte abs 0.71 0.20 - 0.80 K/cumm [facility] Eosinophil abs 0.08 0.00 - 0.50 K/cumm [facility] Basophil abs 0.02 0.00 - 0.10 K/cumm [facility] Neutrophil pct 53.7 % [facility] Comment: Interpretive Data Percent cell count reference ranges are not reported, since discordance with absolute values may lead to misinterpretation of CBC data. Current Interpretive Data was last revised on 2017. Imm gran pct 0.1 % [facility] Comment: Interpretive Data Percent cell count reference ranges are not reported, since discordance with absolute values may lead to misinterpretation of CBC data. Current Interpretive Data was last revised on 2017. Lymphocyte pct 36.0 % [facility] Comment: Interpretive Data Percent cell count reference ranges are not reported, since discordance with absolute values may lead to misinterpretation of CBC data. Current Interpretive Data was last revised on 2017. Monocyte pct 8.9 % [facility] Comment: Interpretive Data Percent cell count reference ranges are not reported, since discordance with absolute values may lead to misinterpretation of CBC data. Current Interpretive Data was last revised on 2017. Eosinophil pct 1.0 % [facility] Comment: Interpretive Data Percent cell count reference ranges are not reported, since discordance with absolute values may lead to misinterpretation of CBC data. Current Interpretive Data was last revised on 2017. Basophil pct 0.3 % [facility] LEAL Comment: Interpretive Data Percent cell count reference ranges are not reported, since discordance with absolute values may lead to misinterpretation of CBC data. Current Interpretive Data was last revised on 2017. Blood 12/05/2024 10:0 0 PM CDT 12/05/2024 10:00 PM CDT Johan COFFEY LAB BLOOD ORDERABLES Final Result Performing Organization Address [facility] Co de Phone Number JAYLEEN [address] [facility] [place] [address] * Thyroid Function [place] (12/05/2024 10:00 PM CDT) TSH 1.00 0.30 - 4.20 mcIUnit/mL Blood 12/05/2024 10:0 0 PM CDT 12/05/2024 10:00 PM CDT Johan COFFEY LAB BLOOD ORDERABLES Final Result Performing Organization Address [facility] de Phone Number NENAARTIE [address] [place] [address] * Phosphorus (12/05/2024 10:00 PM CDT) Phosphorus, pl 3.7 2.3 - 4.5 mg/dL Blood 12/05/2024 10:0 0 PM CDT 12/05/2024 10:00 PM CDT Johan COFFEY LAB BLOOD ORDERABLES Final Result Performing Organization Address [facility] Co de Phone Number NENAARTIE [address] [place] [address] * Magnesium (12/05/2024 10:00 PM CDT) Magnesium 2.2 1.4 - 2.5 mg/dL Blood 12/05/2024 10:0 0 PM CDT 12/05/2024 10:00 PM CDT Johan COFFEY LAB BLOOD ORDERABLES Final Result CERN[facility] [address] Department of Laboratories [place] [id number] * Comprehensive metabolic panel (12/05/2024 10:00 PM [...] classification and Diagnosis of Diabetes Diabetes Care 2021; 46: S19-S40. Current interpretive data was last [...] COFFEY LAB BLOOD ORDERABLES Final Result JAYLEEN LEAL [address] [facility] [employer] [place], [place] [id number] * CBC with auto differential (12/05/2024 10:00 PM CDT) [facility] WBC 7.94 3.80 - 9.90 K/cumm Hgb 14.3 13.0 - 17.5 g/dL [facility] Hct 42.1 38.9 - 50.3 % [facility] Plt 250 150 - 400 K/cumm [facility] MPV 10.2 9.1 - 12.3 fL [facility] RBC 4.74 4.30 - 5.80 M/cumm [facility] MCV 88.8 81.3 - 96.4 fL [facility] MCH 30.2 27.1 - 33.3 pg [facility] MCHC 34.0 32.3 - 35.7 g/dL [facility] RDW CV 11.5 11.1 - 14.9 % [facility] RDW SD 36.7 35.7 - 48.1 fL [facility] NRBC abs 0.00 0.00 - 0.01 K/cumm [facility] Blood Venous blood specimen / Unknown 12/05/2024 10:00 PM CDT 12/05/2024 10:00 PM CDT Johan COFFEY LAB BLOOD ORDERABLES Final Result JAYLEEN LEAL [address] [employer] [place], [place] [id number] * CT Head WO Contrast (12/05/2024 6:39 [...] COFFEY IMG CT PROCEDURES Final Re sult documented in this encounter Visit Diagnoses Not on filedocumented in this encounter Care Teams Medical Assistant Internal Medicine Relationship Specialty [place] [address] [address] [place] [address] PCP - General Family Medicine 07/25/23 [place] [address] [address] [place] [address] Consulting Physician Neurology 06/03/21 documented as of this encounter
--- OUTSIDE RECORDS SUMMARY | 2024-12-06 02:00 | XMS_ITS | Clinical Summary ---
Author Organization [facility] Address [address] [place] [address] [place] [address] Phone Care Team Providers Care Blast Furnace Checker Name Role Phone Unavailable Primary Care Provider Unavailabl e Allergies No known active allergies Medications No known medications Active Problems No known active problems Encounters Date Type Department Care Team Description 10/09/2024 External Device Data [facility] ABSTRACTION Provider, Abstract 09/12/2024 External Device Data [facility] ABSTRACTION Provider, Abstract from Last 3 Months Immunizations Immunization Administration Dates Next Due (ADACEL/BOOSTRIX)(10 YR UP) TDAP VACCINE, 0.5ML, IM 03/15/2017 Meningococcal A Conjugate Vaccine IM 03/15/2017 Family History Medical History Relation Name Comments Hypertension Father Hypertension Maternal Grandfather Hypertension Maternal Grandmother Hypertension Paternal Grandfather Hypertension Paternal Grandmother Stroke Paternal Grandmother Relation Name Status Comments Father Maternal Grandfather Maternal Grandmother Paternal Grandfather Paternal Grandmother Social History Tobacco Use Types Packs/Day Years Used Date Smoking Tobacco: Never Sex and Gender Information Value Date Recorded Sex Assigned at Not on file Legal Sex Male 3:31 PM CDT Gender Identity Not on file Sexual Orientation Not on file Last Filed Vital Signs Vital Sign Reading Time Taken Comments Blood Pressure 110/64 03/15/2017 10:36 AM CDT Pulse 69 03/15/2017 10:36 AM CDT Temperature 36.8 C (98.2 F) 03/15/2017 10:36 AM CDT Respiratory Rate - - Oxygen Saturation 97% 03/15/2017 10: 36 AM CDT Inhaled Oxygen Concentration - - Weight 103.8 kg (228 lb 12.8 oz) 2016 10:36 AM CDT Height 185.4 cm (6' 1 ) 03/15/2017 10:3 6 AM CDT Body Mass Index 30.19 03/15/2017 10:36 AM CDT Plan of Treatment Health Maintenance Due Date Last Done Comments HPV VACCINES (1 - Male 3-dose series) 12/06/2014 HEPATITIS B VACCINES (1 of 3 - 19+ 3-dose series) 11/14 INFLUENZA VACCINE (#1) 2024 DTAP/TDAP/TD VACCINES (2 - Td or Tdap) 03/15/2027 Insurance
[2024-12-06 02:41] VITALS: BP 141/78; PULSE 77; RESP 16; O2SAT 100
== END 2024-12-06 02:15 | disposition home or self-care (01) ==
PROVIDERS: Emergency Provider Emergency Medicine
DX: R20.2 Paresthesia of skin (principal); G35 Multiple sclerosis
CPT/HCPCS: 70450; 99284

== ENCOUNTER 2024-12-11 23:21 | Emergency (ER) | payer MEDICAID, SELFPAY ==
[2024-12-11 23:22] VITALS: TEMP 36.9
--- OUTSIDE RECORDS SUMMARY | 2024-12-11 23:23 | XMS_ITS | Clinical Summary ---
Author Organization [facility] [address] [place] [address] Care Team Providers Care Bark Skinner Name Role Phone Sherley ROMEO MD, Edson Dubose Unavailable [phone] Dago Colunga MD Primary Care Provide r [...] daily 90 tablet 2 02/23/2024 Active omega 1-lcn-via-fish oil (Fish OiL) 1,000 (120-180) mg capsule Take by mouth daily Active cholecalciferol, vitamin D3, 1,000 unit tablet,chewable Take 1 tablet/chew tab by mouth daily Active Active Problems Problem Noted Date Diagnosed Date Obesity (BMI 30-39.9) 08/21/2024 Assessment & Plan (08/21/2024 8:54 AM TERMITE CONTROL SERVICER): BMI follow-up: Education provided Encounter for well adult exam without abnormal f indings 02/17/2022 Assessment & Plan (02/17/2022 9:33 PM CDT): Reviewed current problem list and reconciled Meds. Patient is up-to-date on his immunizations. Multiple sclerosis 05/29/2021 Assessment & Plan (08/21/2024 8:54 AM TERMITE CONTROL SERVICER): Management by Neurology teriflunomide 14 mg tablet daily Assessment & Plan (02/17/2023 9:45 PM CDT): Patient under the care of neurologist. However patient has been out his current Meds due to cost and loss of insurance coverage. Discussed referral to MS clinic at [facility]. Patient reports episodes of weakness due to lack of Meds. Assessment & Plan (02/17/2022 9:35 PM CDT): Patient under the care of neurologist. Reviewed current Meds. Vision disturbance 05/28/2021 Assessment & Plan (02/17/2022 9:34 PM CDT): Patient under the care of mechanical and auto body car checker. Encounters Date Type Department Care Team Description 12/05/2024 11:45 PM CDT - 12/05/2024 11:46 PM CDT Emergency [facility] Emergency Department [address] [place] [address] Discharge Disposition: Left without being seen 12/05/2024 Nurse Triage Family Care at [address] [place] [address] Dago Colunga MD 11/27/2024 3:20 PM CDT Office [facility] [id number] [place] [address] Medical Office Building [address] [place] [address] Nica Kim NP Tinnitus, unspecified laterality (Primary Dx); Multiple sclerosis (HCC); Stress 11/27/2024 2:45 PM CDT Procedure visit [facility] Otolaryngology [address] [place] [address] Medical Office Building [address] [place] [address] Estrada Alaniz Au.D. Dizziness 09/22/2024 10:06 AM TERMITE CONTROL SERVICER - 09/22/2024 11:59 PM TERMITE CONTROL SERVICER Hospital Encounter [facility] Imaging and Radiology [address] [place] [address] Edson Lepe II, MD Multiple sclerosis (HCC) Discharge Disposition: Discharge to home or self care 09/18/2024 Telephone [facility] [address] [facility] [address] [place] [address] Edson Lepe II, MD MRI Authorization 09/15/2024 Orders Only [facility] Otolaryngology [address] [facility] [address] [place] [address] [place] [address] Meghan Deal Au.D. Dizziness (Primary Dx) 09/15/[address] [facility] Otolaryngology [address] [facility] Medicine [address] [place] [address] [place] [address] Meghan Deal Au.D. 09/13/2024 Telephone [facility] Advanced Medicine ([facility]) - [facility] ENT [address] [facility] [address] [place] [address] [place] [address] Elicia Neal MS from Last [...] Other Relation Name Status Comments Father Johnny Grimaldo Alive Mother Socorro Dubon Alive Other Social [...] week 06/01/2021 How often do you attend jehovah's witness or worship serv ices? Never 06/01/2021 Do you belong to any clubs o r organizations such as jehovah's witness groups, unions, fraternal or athletic groups, or [...] on file Legal Sex Male 9:21 AM TERMITE CONTROL SERVICER Gender Identity Male 07/14/2021 9:18 AM TERMITE CONTROL SERVICER Sexual Orientation Straight 07/14/2021 9: 18 AM TERMITE CONTROL SERVICER Obstetrics History Last Filed Vital Signs Vital [...] Read Routine (OP Routine) 09/22/2024 11:08 AM TERMITE CONTROL SERVICER Multiple sclerosis (HCC) HEPATITIS PANEL, ACUTE Routine 07/14/2021 10:25 AM TERMITE CONTROL SERVICER Multiple sclerosis (HCC) from Last 3 Months [...] COFFEY LAB BLOOD ORDERABLES Final Result JAYLEEN [address] Department [place] [address] * Differential, auto (12/05/2024 10:00 PM CDT) Neutrophil abs 4.26 1.50 - 6.50 K/cumm Imm gran abs 0.01 0.00 - 0.10 K/cumm [facility] Lymphocyte abs 2.86 0.80 - 3.30 K/cumm [facility] Monocyte abs 0.71 0.20 - 0.80 K/cumm [facility] Eosinophil abs 0.08 0.00 - 0.50 K/cumm [facility] Basophil abs 0.02 0.00 - 0.10 K/cumm [facility] Neutrophil pct 53.7 % JAYLEEN Comment: Interpretive [...] revised on 2017. Basophil pct 0.3 % [facility] Comment: Interpretive Data Percent cell count reference ranges are not reported, since discordance with absolute values may lead to misinterpretation of CBC data. Current Interpretive Data was last revised on 2017. Blood 12/05/2024 10:0 0 PM CDT 12/05/2024 10:00 PM CDT Johan COFFEY LAB BLOOD ORDERABLES Final Result Performing Organization Address City/[facility]/ZIP Co de Phone Number NENAARTIE LEAL [address] [address] [facility] [place] [address] * Thyroid Function [place] (12/05/2024 10:00 PM CDT) TSH 1.00 0.30 - 4.20 mcIUnit/mL Blood 12/05/2024 10:0 0 PM CDT 12/05/2024 10:00 PM CDT Johan COFFEY LAB BLOOD ORDERABLES Final Result Performing Organization Address City/[facility]/ZIP Co de Phone Number JAYLEEN LEAL [address] [address] Department [place] [address] * CBC with auto differential (12/05/2024 10:00 PM CDT) WBC 7.94 3.80 - 9.90 K/cumm Hgb 14.3 13.0 - 17.5 g/dL [facility] Hct 42.1 38.9 - 50.3 % [facility] Plt 250 150 - 400 K/cumm [facility] MPV 10.2 9.1 - 12.3 fL [facility] RBC 4.74 4.30 - 5.80 M/cumm [facility] MCV 88.8 81.3 - 96.4 fL [facility] MCH 30.2 27.1 - 33.3 pg [facility] MCHC 34.0 32.3 - 35.7 g/dL [facility] RDW CV 11.5 11.1 - 14.9 % [facility] RDW SD 36.7 35.7 - 48.1 fL [facility] NRBC abs 0.00 0.00 - 0.01 K/cumm [facility] Blood Venous blood specimen / Unknown 12/05/2024 10:00 PM CDT 12/05/2024 10:00 PM CDT Johan COFFEY LAB BLOOD ORDERABLES Final Result Performing Organization Address City/[facility]/ZIP Co de Phone Number NENAARTIE LEAL [address] [address] [facility] [place] [address] * Phosphorus (12/05/2024 10:00 PM CDT) Pathologist [facility] Phosphorus, pl 3.7 2.3 - 4.5 mg/dL Blood 12/05/2024 10:0 0 PM CDT 12/05/2024 10:00 PM CDT Johan COFFEY LAB BLOOD ORDERABLES Final Result JAYLEEN [address] [address] [facility] [employer] [place], [place] [id number] * Magnesium (12/05/2024 10:00 PM CDT) Pathologist [facility] Magnesium 2.2 1.4 - 2.5 mg/dL Blood 12/05/2024 10:0 0 PM CDT 12/05/2024 10:00 PM CDT us Johan COFFEY LAB BLOOD [place] [address] [address] Department [place] [address] * Comprehensive metabolic panel (12/05/2024 10:00 PM [...] LAB [place] [address] [place] [address] * CT Head WO Contrast (12/05/2024 6:39 [...] Brain W WO Contrast (09/22/2024 11:08 AM TERMITE CONTROL SERVICER) Anatomical Region Laterality Modality Head and Neck N/A Magnetic Resonan ce 09/24/2024 10:3 4 AM TERMITE CONTROL SERVICER Impressions 09/24/2024 10:34 AM TERMITE CONTROL SERVICER Stable appearance with multiple White matter lesions without new lesions. Areas of completed demyelination. Enhancement of the clara stable since previous with area of old hemorrhage in the clara unchanged. Electronically signed by: Prem Mai M.D. Narrative 09/24/2024 10:34 AM TERMITE CONTROL SERVICER EXAMINATION: MRI BRAIN W WO CONTRAST HISTORY: [...] images demonstrate normal flow voids within the [place] of [place]. Normal rincon-white matter differentiation. Multiple [...] images demonstrate normal flow voids within the [place] of [place]. Normal rincon-white matter differentiation. Multiple [...] * Hepatitis panel, acute (07/14/2021 10:25 AM TERMITE CONTROL SERVICER) Hep A IgM Nonreactive Nonreactive [facility] Comment: Interpretive Data: If Hep A [...] Nonreactive JAYLEEN Blood 07/14/2021 10:2 5 AM TERMITE CONTROL SERVICER 07/14/2021 3:26 PM TERMITE CONTROL SERVICER us Edson Lepe II, MD LAB MICROBIOLOGY - GENERAL O RDERABLES Final Result JAYLEEN [address] Department [place] [address] from Last 3 Months or Most Recently Relevant to Health Maintenance [place] [place] [address] [place] Advance Directives For more information, please contact: [phone] * Full Code (Latest Code Status on File) Date Activated Date Inactivated Comments 05/29/2021 1:10 AM 06/03/2021 10:16 PM Care Teams Bark Skinner Relationship Specialty [place] [address] [address] [facility] [address] [place] [address] PCP - General Family Medicine 07/25/23 [place] [address] [address] [facility] [address] [place] [address] Consulting Physician Neurology 06/03/21
--- OUTSIDE RECORDS SUMMARY | 2024-12-11 23:23 | XMS_ITS | Clinical Summary ---
Author Organization [facility] Address [address] [place] [address] [place] [address] Phone Care Team Providers Care Corn Miller Name Role Phone Unavailable Primary Care Provider [...]
--- OUTSIDE RECORDS SUMMARY | 2024-12-11 23:23 | XMS_ITS | Encounter Summary ---
Author Organization [facility] Healthcare Address [address] [place] [address] Care Team Providers Care Cigar Packer And Shader Name Role Phone Sherley ROMEO MD, Edson Dubose Unavailable [phone] Dago Colunga MD Primary Care Provide r Reason for Visit * Reason Onset Date Comments neuroligic 12/05/2024 neurologic deficit 12/05/2024 Encounter Details Date Type Department Care Team (Late st Contact Info) Description 12/05/2024 Nurse Triage Family Care at [facility] [address] [address] [place] [address] [facility] [address] [place] [address] Social History Tobacco Use Types [...] week 06/01/2021 How often do you attend evangelical or yarsanism serv ices? Never 06/01/2021 Do you belong to any clubs o r organizations such as evangelical groups, unions, fraternal or athletic groups, or [...] place to sleep or slept in a jail (including now)? No 06/01/2021 PHQ-9 Answer Date Recorded PHQ-9 Total Score 0 08/21/2024 Personal Safety Answer Date Recorded Have you ever been in or are you currently in a harmful physical or emotional relationship or is someone making you feel afraid or unsafe? Denies 12/05/2024 Sex and Gender Information Value Date Recorded Sex Assigned at Not on file Legal Sex Male 9:21 AM TIMBER MANAGEMENT SPECIALIST Gender Identity Male 07/14/2021 9:18 AM TIMBER MANAGEMENT SPECIALIST Sexual Orientation Straight 07/14/2021 9: 18 AM TIMBER MANAGEMENT SPECIALIST documented as of this encounter Miscellaneous Notes [...] just parts of the leg, thigh to snf down leg, arm, hand, pinky and last [...] emergency to the triager Protocols used: Neurologic [id number] * Telephone Encounter - Estrella Sandoval RN [...] on filedocumented in this encounter Care Teams Cigar Packer And Shader Relationship Specialty [place] [address] [address] [facility] [address] [place] [address] PCP - General Family Medicine 07/25/23 [place] [address] [address] [facility] [address] [place] [address] Consulting Physician Neurology 06/03/21 documented as of this encounter
--- OUTSIDE RECORDS SUMMARY | 2024-12-11 23:23 | XMS_ITS | Referral Summary ---
Author Organization [facility] Physician Office Building [address] [place] [id number] Care Team Providers Care Data Processing Clerk Name Role Phone Sherley ROMEO MD, Edson MontoyaAbdirizak Unavailable [phone] Dago Colunga MD Primary Care Provide r Encounters Date Type Department Care Team Description 12/05/2024 11:45 PM CDT - 12/05/2024 11:46 PM CDT Emergency [facility] Emergency Department [address] [place] [id number] Discharge Disposition: Left without being seen 12/05/2024 Nurse Triage Family Care at [address] [address] Dago Colunga MD 11/27/2024 3:20 PM CDT Office Visit [facility] [address] [place] [address] Medical Office Building [address] [place] [phone] Nica Kim NP Tinnitus, unspecified laterality (Primary Dx); Multiple sclerosis (HCC); Stress 11/27/2024 2:45 PM CDT Procedure visit [facility] Otolaryngology [address] [place] [address] Medical Office Building 2 [address] [place] [address] Estrada Alaniz Au.D. Dizziness 09/22/2024 10:06 AM LEAD RELAY TESTER - 09/22/2024 11:59 PM LEAD RELAY TESTER Hospital Encounter [facility] Radiology [address] [place] [address] Edson Lepe II, MD Multiple sclerosis (HCC) Discharge Disposition: Discharge to home or self care 09/18/2024 Telephone [facility] [address] [facility] [address] [place] [address] Edson Lepe II, MD MRI Authorization 09/15/2024 Orders Only [facility] Otolaryngology [address] [facility] Advanced Medicine 11th [place] [address] [place] [address] Meghan Deal Au.D. Dizziness (Primary Dx) 09/15/2024 Telephone [facility] Otolaryngology [address] [facility] 11th [place] [address] [place] [address] Meghan Deal Au.D. 09/13/[address] [facility] - [facility] ENT [address] [facility] 11th [place] [address] [place] [address] Neal, Elicia, from Last 3 [...] daily 90 tablet 2 02/23/2024 Active omega 0-xna-gxx-fish oil (Fish OiL) 1,000 (120-180) mg capsule Take by mouth daily Active cholecalciferol, vitamin D3, 1,000 unit tablet,chewable Take 1 tablet/chew tab by mouth daily Active Active Problems Problem Noted Date Diagnosed Date Obesity (BMI 30-39.9) 08/21/2024 Assessment & Plan (08/21/2024 8:54 AM LEAD RELAY TESTER): BMI follow-up: Education provided Encounter for well adult exam without abnormal f indings 02/17/2022 Assessment & Plan (02/17/2022 9:33 PM CDT): Reviewed current problem list and reconciled Meds. Patient is up-to-date on his immunizations. Multiple sclerosis 05/29/2021 Assessment & Plan (08/21/2024 8:54 AM LEAD RELAY TESTER): Management by Neurology teriflunomide 14 mg tablet daily Assessment & Plan (02/17/2023 9:45 PM CDT): Patient under the care of neurologist. However patient has been out his current Meds due to cost and loss of insurance coverage. Discussed referral to MS clinic at [facility]. Patient reports episodes of weakness due to lack of Meds. Assessment & Plan (02/17/2022 9:35 PM CDT): Patient under the care of neurologist. Reviewed current Meds. Vision disturbance 05/28/2021 Assessment & Plan (02/17/2022 9:34 PM CDT): Patient under the care of desktop engineer. Immunizations Immunization Administration Dates Next Due Influenza, [...] week 06/01/2021 How often do you attend episcopalian or moravian serv ices? Never 06/01/2021 Do you belong to any clubs o r organizations such as episcopalian groups, unions, fraternal or athletic groups, or [...] place to sleep or slept in a usp (including now)? No 06/01/2021 PHQ-9 Answer Date Recorded PHQ-9 Total Score 0 08/21/2024 Personal Safety Answer Date Recorded Have you ever been in or are you currently in a harmful physical or emotional relationship or is someone making you feel afraid or unsafe? Denies 12/05/2024 Sex and Gender Information Value Date Recorded Sex Assigned at Not on file Legal Sex Male 9:21 AM LEAD RELAY TESTER Gender Identity Male 07/14/2021 9:18 AM LEAD RELAY TESTER Sexual Orientation Straight 07/14/2021 9: 18 AM LEAD RELAY TESTER Last Filed Vital Signs Vital Sign Reading [...] Read Routine (OP Routine) 09/22/2024 11:08 AM LEAD RELAY TESTER Multiple sclerosis (HCC) HEPATITIS PANEL, ACUTE Routine 07/14/2021 10:25 AM LEAD RELAY TESTER Multiple sclerosis (HCC) from Last 3 Months [...] COFFEY LAB BLOOD ORDERABLES Final Result JAYLEEN [address] [place] [address] * Differential, auto (12/05/2024 10:00 PM CDT) Neutrophil abs 4.26 1.50 - 6.50 K/cumm Imm gran abs 0.01 0.00 - 0.10 K/cumm [facility] Lymphocyte abs 2.86 0.80 - 3.30 K/cumm [facility] Monocyte abs 0.71 0.20 - 0.80 K/cumm [facility] Eosinophil abs 0.08 0.00 - 0.50 K/cumm [facility] Basophil abs 0.02 0.00 - 0.10 K/cumm [facility] Neutrophil pct 53.7 % [facility] Comment: Interpretive Data Percent cell count reference ranges are not reported, since discordance with absolute values may lead to misinterpretation of CBC data. Current Interpretive Data was last revised on 2017. Imm gran pct 0.1 % [facility] Comment: Interpretive Data Percent cell count reference ranges are not reported, since discordance with absolute values may lead to misinterpretation of CBC data. Current Interpretive Data was last revised on 2017. Lymphocyte pct 36.0 % [facility] Comment: Interpretive Data Percent cell count reference ranges are not reported, since discordance with absolute values may lead to misinterpretation of CBC data. Current Interpretive Data was last revised on 2017. Monocyte pct 8.9 % [facility] Comment: Interpretive Data Percent cell count reference ranges are not reported, since discordance with absolute values may lead to misinterpretation of CBC data. Current Interpretive Data was last revised on 2017. Eosinophil pct 1.0 % [facility] Comment: Interpretive Data Percent cell count reference ranges are not reported, since discordance with absolute values may lead to misinterpretation of CBC data. Current Interpretive Data was last revised on 2017. Basophil pct 0.3 % [facility] Comment: Interpretive Data Percent cell count reference ranges are not reported, since discordance with absolute values may lead to misinterpretation of CBC data. Current Interpretive Data was last revised on 2017. Blood 12/05/2024 10:0 0 PM CDT 12/05/2024 10:00 PM CDT Johan COFFEY LAB BLOOD ORDERABLES Final Result JAYLEEN [address] [place] [address] * Thyroid Function [place] (12/05/2024 10:00 PM CDT) Pathologist [facility] TSH 1.00 0.30 - 4.20 mcIUnit/mL Blood 12/05/2024 10:0 0 PM CDT 12/05/2024 10:00 PM CDT Johan COFFEY LAB BLOOD ORDERABLES Final Result Performing Organization Address City/[facility]/ZIP Co de Phone Number JAYLEEN LEAL [address] [place] [address] * CBC with auto differential (12/05/2024 10:00 PM CDT) Pathologist [facility] WBC 7.94 3.80 - 9.90 K/cumm Hgb 14.3 13.0 - 17.5 g/dL [facility] CH Hct 42.1 38.9 - 50.3 % [facility] Plt 250 150 - 400 K/cumm [facility] MPV 10.2 9.1 - 12.3 fL [facility] CH RBC 4.74 4.30 - 5.80 M/cumm [facility] MCV 88.8 81.3 - 96.4 fL [facility] MCH 30.2 27.1 - 33.3 pg [facility] MCHC 34.0 32.3 - 35.7 g/dL [facility] RDW CV 11.5 11.1 - 14.9 % [facility] CH RDW SD 36.7 35.7 - 48.1 fL [facility] CH NRBC abs 0.00 0.00 - 0.01 K/cumm [facility] Blood Venous blood specimen / Unknown 12/05/2024 10:00 PM CDT 12/05/2024 10:00 PM CDT Johan COFFEY LAB BLOOD ORDERABLES Final Result Performing Organization Address City/[facility]/ZIP Co de Phone Number JAYLEEN LEAL [address] [place] [address] * Phosphorus (12/05/2024 10:00 PM CDT) [facility] Phosphorus, pl 3.7 2.3 - 4.5 mg/dL Blood 12/05/2024 10:0 0 PM CDT 12/05/2024 10:00 PM CDT Johan COFFEY LAB BLOOD ORDERABLES Final Result Performing Organization Address City/[facility]/ZIP Co de Phone Number JAYLEEN [phone] [facility] [place] [address] * Magnesium (12/05/2024 10:00 PM CDT) [facility] Magnesium 2.2 1.4 - 2.5 mg/dL Blood 12/05/2024 10:0 0 PM CDT 12/05/2024 10:00 PM CDT Johan COFFEY LAB BLOOD ORDERABLES Final Result Performing Organization Address [facility] de Phone Number [facility] [address] [facility] [place] [address] * Comprehensive metabolic panel (12/05/2024 10:00 PM CDT) [facility] Sodium 140 135 - 145 mmol/L Potassium, pl 4.4 3.3 - 4.9 mmol/L [facility] Chloride 104 97 - 110 mmol/L [facility] CO2 24 22 - 32 mmol/L [facility] Anion gap 12 2 - 15 mmol/L [facility] BUN 21 6 - 25 mg/dL [facility] Creatinine 0.95 0.80 - 1.30 mg/dL [facility] Glucose 92 70 - 199 mg/dL [facility] Comment: Interpretive Data Fasting glucose >/= 126 [...] LAB [place] [address] [address] [place] [address] * CT Head WO Contrast (12/05/2024 6:39 [...] Brain W WO Contrast (09/22/2024 11:08 AM LEAD RELAY TESTER) Anatomical Region Laterality Modality Head and Neck N/A Magnetic Resonan ce 09/24/2024 10:3 4 AM LEAD RELAY TESTER Impressions 09/24/2024 10:34 AM LEAD RELAY TESTER Stable appearance with multiple White matter lesions without new lesions. Areas of completed demyelination. Enhancement of the clara stable since previous with area of old hemorrhage in the clara unchanged. Electronically signed by: Prem Mai M.D. Narrative 09/24/2024 10:34 AM LEAD RELAY TESTER EXAMINATION: MRI BRAIN W WO CONTRAST HISTORY: [...] images demonstrate normal flow voids within the seminole of Bauer. Normal rincon-white matter differentiation. Multiple [...] images demonstrate normal flow voids within the seminole of [place]. Normal rincon-white matter differentiation. Multiple White matter lesions identified. Deep venous sinuses appear to be patent. Susceptibility images once again demonstrate a straight moderate blood degradation products involving the central and ventral clraa. No additional areas of previous hemorrhage are [...] * Hepatitis panel, acute (07/14/2021 10:25 AM LEAD RELAY TESTER) Hep A IgM Nonreactive Nonreactive [facility] Comment: Interpretive Data: If Hep A IgM Ab is reported as Equivocal, a new sample should be drawn in two weeks for testing. Current interpretive data was last revised on 19. Hep B core IgM Nonreactive Nonreactive [facility] Comment: Interpretive Data If HepB Core IgM Ab is reported as Equivocal, a new sample should be drawn in two weeks for testing. Current interpretive data was last revised on 19. Hep C Ab Nonreactive Nonreactive [facility] Comment: Interpretive Data Nonreactive: Antibodies to HCV [...] last revised on 2019. HepBsAg Nonreactive Nonreactive [facility] Blood 07/14/2021 10:2 5 AM LEAD RELAY TESTER 07/14/2021 3:26 PM LEAD RELAY TESTER Edson Lepe II, MD LAB MICROBIOLOGY - GENERAL O RDERABLES Final Result [facility] [address] [place] [address] from Last 3 Months or Most Recently Relevant to Health Maintenance Insurance [facility] [address] [place] [id number] [facility] [address] [place] [id number] [facility] Advance Directives For more information, please contact: [phone] * Full Code (Latest Code Status on File) Date Activated Date Inactivated Comments 05/29/2021 1:10 AM 06/03/2021 10:16 PM Care Teams Data Processing Clerk Relationship Specialty [place] [id number] [address] PCP - General Family Medicine 07/25/23 [place] [id number] [facility] [address] [place] [address] Consulting Physician Neurology 06/03/21
[2024-12-11 23:27] VITALS: BP 133/87; PULSE 90; RESP 18; O2SAT 99
--- NOTE | 2024-12-12 00:05 | ED_ITS ---
HPI - Recheck/Abnormal Lab/Rx General Chief Complaint: Recheck/Abnormal Lab/Rx Stated Complaint: side effects from prednisone Time Seen by Provider: 12/11/24 23:37 History of Present Illness HPI narrative: 24-year-old male with history of MS currently being treated for an MS flare for the last few days. Patient was seen in this emergency department earlier last week and at [facility] where his neurologist is. He was prescribed a Medrol pack and has taken the 1st 3 days of them. He states that he was having side effects including vivid dreams, obscure dreams, locking up of his joints and feeling very thirsty. He has never had steroids like that before according to him. Currently trying to find a new neurologist and does not have a primary care provider. Denies any new deficits from his MS, able to ambulate, no weakness, nausea, vomiting, abdominal pain, fever, chills. No history of diabetes. Related Data Allergies Allergy/AdvReac Type Severity Reaction Status Date / Time No Known Allergies Allergy Verified 12/11/24 23:31 Review of Systems 2 Review of Systems: As reviewed above in HPI Exam 2 Narrative: GENERAL: [Well-appearing, well-nourished, and in no acute distress.] HEAD: [Normocephalic, atraumatic.] EYES: [PERRLA and EOMI.] ENT: Nares clear, no rhinorrhea or epistaxis. Mucous membranes moist. NECK: Supple. CHEST: [Clear to auscultation. No respiratory distress.] HEART: [Regular rate and rhythm]. No murmur heard. [Normal peripheral pulses.] ABDOMEN: [Soft, nondistended], [nontender], [No rigidity or guarding] EXTREMITIES: Normal range of motion. [No edema.] SKIN: Warm, dry, no rash. NEURO: [No focal deficits]. Alert and oriented [x3.] Normal motor function in the arms and legs. No facial asymmetry. Ambulatory with a steady gait. PSYCH: [Normal mood and affect.] Course Vital Signs Vital signs: Vital Signs Pulse Rate 90 12/11/24 23:27 Respiratory Rate 18 12/11/24 23:27 Blood Pressure 133/87 12/11/24 23:27 Pulse Oximetry 99 12/11/24 23:27 Pulse Rate 90 12/11/24 23:27 Respiratory Rate 18 12/11/24 23:27 Blood Pressure 133/87 12/11/24 23:27 Pulse Oximetry 99 12/11/24 23:27 MDM - Recheck/Abnormal Lab/Rx MDM Narrative Medical decision making narrative: 24-year-old male with a history of MS currently being treated with an MS flare with Medrol Dosepak. He states he has never had Medrol in the past and sees a neurologist at [facility]. He was at [facility] ER and [place] ER last week with flare of symptoms and had unremarkable workup including negative CT scan. Discharged home with taper pack. He thinks he is having some side effects from them as he is having vivid dreams and distorted dreams. Endorsing vague muscle spasms and sensation that his joints or locking up on him. Started after taking his 1st 3 days of the steroid. He has no new motor or sensory deficits from his MS, normal vital signs. No indications for advanced CT images or other significant workup but we will evaluate with CBC and CMP to see if there is any electrolyte disturbances, hyperglycemia or any complications from his steroid use. Discussed normal prednisone and steroid side effect profiles and strategies to manage this including taking all his steroid in the morning, low-salt diet, adequate hydration and sleep. Assuming unremarkable workup I discussed changing his steroid to a once daily prednisone for the next several days until he can see his neurologist. Patient was comfortable with this plan. Awaiting blood work. Laboratory studies are all normal. Patient will be sent home with oral prednisone rather than Medrol and instructed to take this 1st thing in the morning as well as keep a low-salt diet and drink lots of water. Patient will be referred to our local neurologist for evaluation on outpatient basis. Patient updated on plan of care and discharge. Return precautions provided. Medical Records Attestation: I reviewed the patient's medical records. Lab Data Attestation: I reviewed the patient's lab results. 12/11/24 23:55 12/11/24 23:55 Labs: Lab Results 12/11/24 Range/Units 23:55 WBC 7.5 (4.5-10.0) K/mm3 RBC 4.85 (4.6-6.20) M/mm3 Hgb 14.5 (14.0-18.0) g/dL Hct 43.2 (42.0-52.0) % MCV 89.1 (80-100) fl MCH 29.9 (26-34) pg MCHC 33.6 (32-36) g/dl RDW 11.7 (11.5-14.5) % Plt Count 262 (150-375) k/mm3 MPV 10.3 (7.4-10.4) fl Immature Gran % (Auto) 0.3 (0-0.5) % Neut % (Auto) 52.0 (45.5-73.1) % Lymph % (Auto) 38.2 (18.3-44.2) % Pacific % (Auto) 7.5 (2.6-8.5) % Eos % (Auto) 1.7 (0-4.4) % Baso % (Auto) 0.3 (0.2-1.2) % Lymph # (Auto) 2.85 (0.9-3.2) K/mm3 Pacific # (Auto) 0.6 (0.1-0.6) K/mm3 Eos # (Auto) 0.1 (0-0.3) K/mm3 Baso # (Auto) 0.0 (0.0-0.1) K/mm3 Abs Immat Gran (auto) 0.02 (0.00-0.031) K/mm3 Absolute Neuts (auto) 3.9 (1.3-6.7) K/mm3 Absolute Nucleated RBC 0.000 (0.0-0.012) K/mm3 Nucleated RBC % 0.0 (0.0-0.2) % Sodium 140 (137-145) mmol/L Potassium 3.5 (3.4-5.0) mmol/L Chloride 103 (98-107) mmol/L Carbon Dioxide 28 (22-30) mmol/L Anion Gap 9 (4-12) mmol/L BUN 14 (9-20) mg/dL Creatinine 0.93 (0.7-1.3) mg/dL Estim Creat Clear Calc 150 ml/min Estimated GFR > 60 (59 - ) Glucose 95 (65-110) mg/dL Calcium 9.5 (8.4-10.2) mg/dL Magnesium 2.1 (1.6-2.3) mg/dL Total Bilirubin 0.8 (0.2-1.3) mg/dL AST 18 (17-59) U/L ALT 20 (6-50) U/L Alkaline Phosphatase 63 (38-126) U/L Total Protein 7.0 (6.3-8.2) g/dL Albumin 4.5 (3.5-5.1) g/dL Discharge Plan Discharge Clinical Impression: Medication side effect Patient Disposition: Home Condition: Stable Instructions: Antibiotic Form Additional Instructions: All of your laboratory studies are normal. We will change the steroid to help with side effects. Take the new prescription 1st thing in the morning at the earliest time you wake up and drink lots of water as well as eating a very low- salt diet to help with side effects. Contact the provided neurologist for outpatient clinic appointments. Return with any emergent concerns. Stop taking the Medrol Dosepak. Patient Language: Frisian Prescriptions: New prednisone 20 mg tablet 40 mg PO DAILY 3 Days Qty: 6 0RF No Action methylprednisolone [Medrol (Can)] 4 mg tablets,dose pack See Rx Instructions .ROUTE .COMPLEX Qty: 21 0RF Rx Instructions: for 6 days Follow-up/Referrals: Aime Hernandez MD [Physician] - 2 Weeks (MS) Jessica Juarez MD [Physician] - 2 Weeks (MS) PHYSICIAN,CULINARY ARTIST [Primary Care Provider] - Time of Disposition: 00:51
[2024-12-12 00:11] LABS: Alanine Aminotransferase 20 U/L (6-50); Albumin Level 4.5 g/dL (3.5-5.1); Alkaline Phosphatase 63 U/L (38-126); Anion Gap 9 mmol/L (4-12); Aspartate Amino Transferase 18 U/L (17-59); Bilirubin,Total 0.8 mg/dL (0.2-1.3); Blood Urea Nitrogen 14 mg/dL (9-20); Calcium 9.5 mg/dL (8.4-10.2); Carbon Dioxide 28 mmol/L (22-30); Chloride 103 mmol/L (98-107); Estimated CRCL calculation 150 ml/min; Estimated Glomerular Filt Rate > 60; Glucose 95 mg/dL (65-110); Potassium 3.5 mmol/L (3.4-5.0); Sodium 140 mmol/L (137-145)
[2024-12-12 00:12] LABS: Magnesium 2.1 mg/dL (1.6-2.3)
--- OUTSIDE RECORDS SUMMARY | 2024-12-12 00:21 | XMS_ITS | Referral Summary ---
Author Organization [facility] Physician Office Building [address] [place] [address] Care Team Providers Care Imaging Science Professor Name Role Phone Sherley ROMEO MD, Edson MontoyaAbdirizak Unavailable [phone] Dago Colunga MD Primary Care Provide r Encounters Date Type Department Care Team Description 12/05/2024 11:45 PM CDT - 12/05/2024 11:46 PM CDT Emergency [facility] Emergency Department [address] [place] [address] Discharge Disposition: Left without being seen 12/05/2024 Nurse Triage Family Care at [address] [address] Dago Colunga MD 11/27/2024 3:20 PM CDT Office Visit [facility] [address] [place] [address] Medical Office Building [address] [place] [address] Nica Kim NP Tinnitus, unspecified laterality (Primary Dx); Multiple sclerosis (HCC); Stress 11/27/2024 2:45 PM CDT Procedure visit [facility] Otolaryngology [address] [place] [address] Medical Office Building 2 [address] [place] [address] Estrada Alaniz Au.D. Dizziness 09/22/2024 10:06 AM LOGGING SUPERVISOR - 09/22/2024 11:59 PM LOGGING SUPERVISOR Hospital Encounter [facility] Imaging and Radiology [address] [place] [address] Edson Lepe II, MD Multiple sclerosis (HCC) Discharge Disposition: Discharge to home or self care 09/18/2024 Telephone [facility] [address] [facility] [address] [place] [address] Edson Lepe II, MD MRI Authorization 09/15/2024 Orders Only [facility] Otolaryngology [address] [facility] [address]th [place] [address] [place] [address] Meghan Deal Au.D. Dizziness (Primary Dx) 09/15/2024 Telephone [facility] Otolaryngology [address] [facility] 11th [place] [address] [place] [address] Meghan Deal Au.D. 09/13/2024 Telephone [facility] - [facility] ENT [address] [facility] 11th [place] [address] [place] [address] Neal, Elicia, from Last 3 [...] daily 90 tablet 2 02/23/2024 Active omega 4-jkp-iyu-fish oil (Fish OiL) 1,000 (120-180) mg capsule Take by mouth daily Active cholecalciferol, vitamin D3, 1,000 unit tablet,chewable Take 1 tablet/chew tab by mouth daily Active Active Problems Problem Noted Date Diagnosed Date Obesity (BMI 30-39.9) 08/21/2024 Assessment & Plan (08/21/2024 8:54 AM LOGGING SUPERVISOR): BMI follow-up: Education provided Encounter for well adult exam without abnormal f indings 02/17/2022 Assessment & Plan (02/17/2022 9:33 PM CDT): Reviewed current problem list and reconciled Meds. Patient is up-to-date on his immunizations. Multiple sclerosis 05/29/2021 Assessment & Plan (08/21/2024 8:54 AM LOGGING SUPERVISOR): Management by Neurology teriflunomide 14 mg tablet daily Assessment & Plan (02/17/2023 9:45 PM CDT): Patient under the care of neurologist. However patient has been out his current Meds due to cost and loss of insurance coverage. Discussed referral to MS clinic at [facility]. Patient reports episodes of weakness due to lack of Meds. Assessment & Plan (02/17/2022 9:35 PM CDT): Patient under the care of neurologist. Reviewed current Meds. Vision disturbance 05/28/2021 Assessment & Plan (02/17/2022 9:34 PM CDT): Patient under the care of street and building decorator. Immunizations Immunization Administration Dates Next Due Influenza, [...] week 06/01/2021 How often do you attend religion or holiness serv ices? Never 06/01/2021 Do you belong to any clubs o r organizations such as religion groups, unions, fraternal or athletic groups, or [...] on file Legal Sex Male 9:21 AM LOGGING SUPERVISOR Gender Identity Male 07/14/2021 9:18 AM LOGGING SUPERVISOR Sexual Orientation Straight 07/14/2021 9: 18 AM LOGGING SUPERVISOR Last Filed Vital Signs Vital Sign Reading [...] Read Routine (OP Routine) 09/22/2024 11:08 AM LOGGING SUPERVISOR Multiple sclerosis (HCC) HEPATITIS PANEL, ACUTE Routine 07/14/2021 10:25 AM LOGGING SUPERVISOR Multiple sclerosis (HCC) from Last 3 Months [...] COFFEY LAB BLOOD ORDERABLES Final Result JAYLEEN [address] Department [place] [address] * Differential, auto (12/05/2024 10:00 PM CDT) Neutrophil abs 4.26 1.50 - 6.50 K/cumm Imm gran abs 0.01 0.00 - 0.10 K/cumm [facility] Lymphocyte abs 2.86 0.80 - 3.30 K/cumm [facility] Monocyte abs 0.71 0.20 - 0.80 K/cumm [facility] Eosinophil abs 0.08 0.00 - 0.50 K/cumm [facility] Basophil abs 0.02 0.00 - 0.10 K/cumm [facility] Neutrophil pct 53.7 % [facility] Comment: Interpretive Data Percent cell count reference ranges are not reported, since discordance with absolute values may lead to misinterpretation of CBC data. Current Interpretive Data was last revised on 2017. Imm gran pct 0.1 % [facility] Comment: Interpretive Data Percent cell count reference ranges are not reported, since discordance with absolute values may lead to misinterpretation of CBC data. Current Interpretive Data was last revised on 2017. Lymphocyte pct 36.0 % [facility] Comment: Interpretive Data Percent cell count reference ranges are not reported, since discordance with absolute values may lead to misinterpretation of CBC data. Current Interpretive Data was last revised on 2017. Monocyte pct 8.9 % [facility] Comment: Interpretive Data Percent cell count reference ranges are not reported, since discordance with absolute values may lead to misinterpretation of CBC data. Current Interpretive Data was last revised on 2017. Eosinophil pct 1.0 % [facility] Comment: Interpretive Data Percent cell count reference ranges are not reported, since discordance with absolute values may lead to misinterpretation of CBC data. Current Interpretive Data was last revised on 2017. Basophil pct 0.3 % [facility] Comment: Interpretive Data Percent cell count reference ranges are not reported, since discordance with absolute values may lead to misinterpretation of CBC data. Current Interpretive Data was last revised on 2017. Blood 12/05/2024 10:0 0 PM CDT 12/05/2024 10:00 PM CDT Johan COFFEY LAB BLOOD ORDERABLES Final Result JAYLEEN [address] Department [place] [address] * Thyroid Function Tracy (12/05/2024 10:00 PM CDT) Pathologist [facility] TSH 1.00 0.30 - 4.20 mcIUnit/mL Blood 12/05/2024 10:0 0 PM CDT 12/05/2024 10:00 PM CDT Johan COFFEY LAB BLOOD ORDERABLES Final Result Performing Organization Address City/[facility]/ZIP Co de Phone Number JAYLEEN LEAL [address] [place] [address] * CBC with auto differential (12/05/2024 10:00 PM CDT) Pathologist [facility] WBC 7.94 3.80 - 9.90 K/cumm Hgb 14.3 13.0 - 17.5 g/dL [facility] CH Hct 42.1 38.9 - 50.3 % [facility] CH Plt 250 150 - 400 K/cumm [facility] CH MPV 10.2 9.1 - 12.3 fL [facility] CH RBC 4.74 4.30 - 5.80 M/cumm [facility] CH MCV 88.8 81.3 - 96.4 fL [facility] CH MCH 30.2 27.1 - 33.3 pg [facility] CH MCHC 34.0 32.3 - 35.7 g/dL [facility] CH RDW CV 11.5 11.1 - 14.9 % [facility] CH RDW SD 36.7 35.7 - 48.1 fL [facility] CH NRBC abs 0.00 0.00 - 0.01 K/cumm [facility] CH Blood Venous blood specimen / Unknown 12/05/2024 10:00 PM CDT 12/05/2024 10:00 PM CDT Johan COFFEY LAB BLOOD ORDERABLES Final Result Performing Organization Address City/[facility]/ZIP Co de Phone Number JAYLEEN LEAL [address] Department [place] [address] * Phosphorus (12/05/2024 10:00 PM CDT) [facility] Phosphorus, pl 3.7 2.3 - 4.5 mg/dL Blood 12/05/2024 10:0 0 PM CDT 12/05/2024 10:00 PM CDT Johan COFFEY LAB BLOOD ORDERABLES Final Result Performing Organization Address City/[facility]/ZIP Co de Phone Number JAYLEEN [address] [facility] [place] [address] * Magnesium (12/05/2024 10:00 PM CDT) [facility] Magnesium 2.2 1.4 - 2.5 mg/dL Blood 12/05/2024 10:0 0 PM CDT 12/05/2024 10:00 PM CDT Johan COFFEY LAB BLOOD ORDERABLES Final Result Performing Organization Address [facility] de Phone Number [facility] [address] [facility] [place] [address] * Comprehensive metabolic panel (12/05/2024 10:00 PM CDT) [facility] Sodium 140 135 - 145 mmol/L Potassium, pl 4.4 3.3 - 4.9 mmol/L [facility] Chloride 104 97 - 110 mmol/L [facility] CO2 24 22 - 32 mmol/L [facility] Anion gap 12 2 - 15 mmol/L [facility] BUN 21 6 - 25 mg/dL [facility] Creatinine 0.95 0.80 - 1.30 mg/dL [facility] Glucose 92 70 - 199 mg/dL [facility] Comment: Interpretive Data Fasting glucose >/= [...] LAB [place] [address] [address] Department [place] [address] * CT Head WO Contrast (12/05/2024 6:39 [...] Brain W WO Contrast (09/22/2024 11:08 AM LOGGING SUPERVISOR) Anatomical Region Laterality Modality Head and Neck N/A Magnetic Resonan ce 09/24/2024 10:3 4 AM LOGGING SUPERVISOR Impressions 09/24/2024 10:34 AM LOGGING SUPERVISOR Stable appearance with multiple White matter lesions without new lesions. Areas of completed demyelination. Enhancement of the clara stable since previous with area of old hemorrhage in the clara unchanged. Electronically signed by: Prem Mai M.D. Narrative 09/24/2024 10:34 AM LOGGING SUPERVISOR EXAMINATION: MRI BRAIN W WO CONTRAST HISTORY: [...] images demonstrate normal flow voids within the belkofski of Bauer. Normal rincon-white matter differentiation. Multiple [...] images demonstrate normal flow voids within the belkofski of [place]. Normal rincon-white matter differentiation. Multiple [...] * Hepatitis panel, acute (07/14/2021 10:25 AM LOGGING SUPERVISOR) Hep A IgM Nonreactive Nonreactive [facility] Comment: Interpretive Data: If Hep A IgM Ab is reported as Equivocal, a new sample should be drawn in two weeks for testing. Current interpretive data was last revised on 19. Hep B core IgM Nonreactive Nonreactive [facility] Comment: Interpretive Data If HepB Core IgM Ab is reported as Equivocal, a new sample should be drawn in two weeks for testing. Current interpretive data was last revised on 19. Hep C Ab Nonreactive Nonreactive [facility] Comment: Interpretive Data Nonreactive: Antibodies to [...] last revised on 2019. HepBsAg Nonreactive Nonreactive [facility] Blood 07/14/2021 10:2 5 AM LOGGING SUPERVISOR 07/14/2021 3:26 PM LOGGING SUPERVISOR Edson Lepe II, MD LAB MICROBIOLOGY - GENERAL O RDERABLES Final Result [facility] [address] [place] [address] from Last 3 Months or Most Recently Relevant to Health Maintenance Insurance [facility] [address] [place] [id number] [facility] [address] [place] [id number] [facility] Advance Directives For more information, please contact: [phone] * Full Code (Latest Code Status on File) Date Activated Date Inactivated Comments 05/29/2021 1:10 AM 06/03/2021 10:16 PM Care Teams Imaging Science Professor Relationship Specialty [place] [id number] [address] PCP - General Family Medicine 07/25/23 [place] [address] [facility] [address] [place] [address] Consulting Physician Neurology 06/03/21
--- OUTSIDE RECORDS SUMMARY | 2024-12-12 00:21 | XMS_ITS | Encounter Summary ---
Author Organization [facility] Healthcare Address [address] [place] [address] Care Team Providers Care Safety Scientist Name Role Phone Sherley ROMEO MD, Edson Dubose Unavailable [phone] Dago Colunga MD Primary Care Provide r Reason for Visit * Reason Onset Date Comments neuroligic 12/05/2024 neurologic deficit 12/05/2024 Encounter Details Date Type Department Care Team (Late st Contact Info) Description 12/05/2024 Nurse Triage [facility] Care at [facility] [address] [address] [place] [address] [facility] [address] [place] [address] Social History Tobacco Use Types [...] week 06/01/2021 How often do you attend restorationist or episcopalian serv ices? Never 06/01/2021 Do you belong to any clubs o r organizations such as restorationist groups, unions, fraternal or athletic groups, or [...] place to sleep or slept in a chcf (including now)? No 06/01/2021 PHQ-9 Answer Date Recorded PHQ-9 Total Score 0 08/21/2024 Personal Safety Answer Date Recorded Have you ever been in or are you currently in a harmful physical or emotional relationship or is someone making you feel afraid or unsafe? Denies 12/05/2024 Sex and Gender Information Value Date Recorded Sex Assigned at Not on file Legal Sex Male 9:21 AM GREY IRON MOLDER Gender Identity Male 07/14/2021 9:18 AM GREY IRON MOLDER Sexual Orientation Straight 07/14/2021 9: 18 AM GREY IRON MOLDER documented as of this encounter Miscellaneous Notes [...] just parts of the leg, thigh to custodial down leg, arm, hand, pinky and last [...] emergency to the triager Protocols used: Neurologic [id number] * Telephone Encounter - Estrella Sandoval RN [...] on filedocumented in this encounter Care Teams Safety Scientist Relationship Specialty [place] [id number] [address] [facility] [address] [place] [address] PCP - General Family Medicine 07/25/23 [place] [id number] [address] [facility] [address] [place] [address] Consulting Physician Neurology 06/03/21 documented as of this encounter
--- OUTSIDE RECORDS SUMMARY | 2024-12-12 00:21 | XMS_ITS | Clinical Summary ---
Author Organization [facility] Address [address] [place] [address] Phone Care Team Providers Care Wool Buyer Name Role Phone Unavailable Primary Care Provider [...]
--- OUTSIDE RECORDS SUMMARY | 2024-12-12 00:21 | XMS_ITS | Clinical Summary ---
Author Organization [facility] Physician Office Building [address] [place] [address] Care Team Providers Care Vendor Management Consultant Name Role Phone Sherley ROMEO MD, Edson Dubose Unavailable [phone] Dago Colunga MD Primary Care Provide r [...] daily 90 tablet 2 02/23/2024 Active omega 5-yhl-tri-fish oil (Fish OiL) 1,000 (120-180) mg capsule Take by mouth daily Active cholecalciferol, vitamin D3, 1,000 unit tablet,chewable Take 1 tablet/chew tab by mouth daily Active Active Problems Problem Noted Date Diagnosed Date Obesity (BMI 30-39.9) 08/21/2024 Assessment & Plan (08/21/2024 8:54 AM CLINICAL TRIAL COORDINATOR): BMI follow-up: Education provided Encounter for well adult exam without abnormal f indings 02/17/2022 Assessment & Plan (02/17/2022 9:33 PM CDT): Reviewed current problem list and reconciled Meds. Patient is up-to-date on his immunizations. Multiple sclerosis 05/29/2021 Assessment & Plan (08/21/2024 8:54 AM CLINICAL TRIAL COORDINATOR): Management by Neurology teriflunomide 14 mg tablet daily Assessment & Plan (02/17/2023 9:45 PM CDT): Patient under the care of neurologist. However patient has been out his current Meds due to cost and loss of insurance coverage. Discussed referral to MS clinic at [facility]. Patient reports episodes of weakness due to lack of Meds. Assessment & Plan (02/17/2022 9:35 PM CDT): Patient under the care of neurologist. Reviewed current Meds. Vision disturbance 05/28/2021 Assessment & Plan (02/17/2022 9:34 PM CDT): Patient under the care of crisis therapist. Encounters Date Type Department Care Team Description 12/05/2024 11:45 PM CDT - 12/05/2024 11:46 PM CDT Emergency Emergency Department [address] [place] [address] Discharge Disposition: Left without being seen 12/05/2024 Nurse Triage Family Care at [address] [place] [address] Dago Colunga MD 11/27/2024 3:20 PM CDT [facility] [address] [place] [address] Medical Office Building 2 [address] [place] [address] Nica Kim NP Tinnitus, unspecified laterality (Primary Dx); Multiple sclerosis (HCC); Stress 11/27/2024 2:45 PM CDT Procedure visit [facility] Otolaryngology [address] [place] [address] Medical Office Building 2 [address] [place] [address] Estrada Alaniz Au.D. Dizziness 09/22/2024 10:06 AM CLINICAL TRIAL COORDINATOR - 09/22/2024 11:59 PM CLINICAL TRIAL COORDINATOR Hospital Encounter Imaging and Radiology [address] [place] [address] Edson Lepe II, MD Multiple sclerosis (HCC) Discharge Disposition: Discharge to home or self care 09/18/2024 Telephone [facility] [address] [place] [address] Edson Lepe II, MD MRI Authorization 09/15/2024 Orders Only [facility] Otolaryngology [address] [facility] Advanced Medicine 11th [place] [address] [place] [address] Meghan Deal Au.D. Dizziness (Primary Dx) 09/15/2024 Telephone [facility] Otolaryngology [address] [facility] Advanced Medicine 11th [place] [address] [place] [address] Meghan Deal Au.D. 09/13/[address] [facility] Advanced Medicine ([facility] ENT [address] [facility] Advanced Medicine 11th [place] [address] [place] [address] Elicia Neal MS from Last [...] How often do you attend episcopalian or religion serv ices? Never 06/01/2021 Do you belong [...] on file Legal Sex Male 9:21 AM CLINICAL TRIAL COORDINATOR Gender Identity Male 07/14/2021 9:18 AM CLINICAL TRIAL COORDINATOR Sexual Orientation Straight 07/14/2021 9: 18 AM CLINICAL TRIAL COORDINATOR Obstetrics History Last Filed Vital Signs Vital [...] Read Routine (OP Routine) 09/22/2024 11:08 AM CLINICAL TRIAL COORDINATOR Multiple sclerosis (HCC) HEPATITIS PANEL, ACUTE Routine 07/14/2021 10:25 AM CLINICAL TRIAL COORDINATOR Multiple sclerosis (HCC) from Last 3 Months [...] COFFEY LAB BLOOD ORDERABLES Final Result JAYLEEN [id number] Department [place] [address] * Differential, auto (12/05/2024 10:00 PM CDT) Neutrophil abs 4.26 1.50 - 6.50 K/cumm Imm gran abs 0.01 0.00 - 0.10 K/cumm [facility] Lymphocyte abs 2.86 0.80 - 3.30 K/cumm [facility] Monocyte abs 0.71 0.20 - 0.80 K/cumm [facility] Eosinophil abs 0.08 0.00 - 0.50 K/cumm [facility] Basophil abs 0.02 0.00 - 0.10 K/cumm [facility] Neutrophil pct 53.7 % JAYLEEN Comment: [...] revised on 2017. Basophil pct 0.3 % [facility] Comment: Interpretive Data Percent cell count reference ranges are not reported, since discordance with absolute values may lead to misinterpretation of CBC data. Current Interpretive Data was last revised on 2017. Blood 12/05/2024 10:0 0 PM CDT 12/05/2024 10:00 PM CDT Johan COFFEY LAB BLOOD ORDERABLES Final Result Performing Organization Address City/[facility]/ZIP Co de Phone Number NENAARTIE LEAL [address] [address] [facility] [place] [address] * Thyroid Function [place] (12/05/2024 10:00 PM CDT) TSH 1.00 0.30 - 4.20 mcIUnit/mL Blood 12/05/2024 10:0 0 PM CDT 12/05/2024 10:00 PM CDT Johan COFFEY LAB BLOOD ORDERABLES Final Result Performing Organization Address City/[facility]/ZIP Co de Phone Number JAYLEEN LEAL [id number] [address] Department of [employer] [place] [place] [address] * CBC with auto differential (12/05/2024 10:00 PM CDT) WBC 7.94 3.80 - 9.90 K/cumm Hgb 14.3 13.0 - 17.5 g/dL [facility] Hct 42.1 38.9 - 50.3 % [facility] Plt 250 150 - 400 K/cumm [facility] MPV 10.2 9.1 - 12.3 fL [facility] RBC 4.74 4.30 - 5.80 M/cumm [facility] MCV 88.8 81.3 - 96.4 fL [facility] MCH 30.2 27.1 - 33.3 pg [facility] MCHC 34.0 32.3 - 35.7 g/dL [facility] RDW CV 11.5 11.1 - 14.9 % [facility] RDW SD 36.7 35.7 - 48.1 fL [facility] NRBC abs 0.00 0.00 - 0.01 K/cumm [facility] Blood Venous blood specimen / Unknown 12/05/2024 10:00 PM CDT 12/05/2024 10:00 PM CDT Johan COFFEY LAB BLOOD ORDERABLES Final Result Performing Organization Address City/[facility]/ZIP Co de Phone Number NENAARTIE LEAL [address] [address] [facility] [place] [address] * Phosphorus (12/05/2024 10:00 PM CDT) Pathologist [facility] Phosphorus, pl 3.7 2.3 - 4.5 mg/dL Blood 12/05/2024 10:0 0 PM CDT 12/05/2024 10:00 PM CDT Johan COFFEY LAB BLOOD ORDERABLES Final Result JAYLEEN [address] [address] [facility] [employer] [place], [place] [id number] * Magnesium (12/05/2024 10:00 PM CDT) Pathologist [facility] Magnesium 2.2 1.4 - 2.5 mg/dL Blood 12/05/2024 10:0 0 PM CDT 12/05/2024 10:00 PM CDT us Johan COFFEY LAB [place]LOOD [place] [address] [address] Department [place] [address] * Comprehensive metabolic panel (12/05/2024 10:00 PM [...] LAB [place] [address] [place] [address] * CT Head WO Contrast (12/05/2024 6:39 [...] Brain W WO Contrast (09/22/2024 11:08 AM CLINICAL TRIAL COORDINATOR) Anatomical Region Laterality Modality Head and Neck N/A Magnetic Resonan ce 09/24/2024 10:3 4 AM CLINICAL TRIAL COORDINATOR Impressions 09/24/2024 10:34 AM CLINICAL TRIAL COORDINATOR Stable appearance with multiple White matter lesions without new lesions. Areas of completed demyelination. Enhancement of the clara stable since previous with area of old hemorrhage in the clara unchanged. Electronically signed by: Prem Mai M.D. Narrative 09/24/2024 10:34 AM CLINICAL TRIAL COORDINATOR EXAMINATION: MRI BRAIN W WO CONTRAST HISTORY: [...] images demonstrate normal flow voids within the [place]. Normal rincon-white matter differentiation. Multiple [...] images demonstrate normal flow voids within the [place]. Normal rincon-white matter differentiation. Multiple [...] * Hepatitis panel, acute (07/14/2021 10:25 AM CLINICAL TRIAL COORDINATOR) Hep A IgM Nonreactive Nonreactive [facility] Comment: Interpretive Data: If Hep A IgM [...] Nonreactive JAYLEEN Blood 07/14/2021 10:2 5 AM CLINICAL TRIAL COORDINATOR 07/14/2021 3:26 PM CLINICAL TRIAL COORDINATOR us Edson Lepe II, MD LAB MICROBIOLOGY - GENERAL O RDERABLES Final Result JAYLEEN [address] [address] Department [place] [address] from Last 3 Months or Most Recently Relevant to Health Maintenance [place] [address] [address] [facility] Advance Directives For more information, please contact: [phone] * Full Code (Latest Code Status on File) Date Activated Date Inactivated Comments 05/29/2021 1:10 AM 06/03/2021 10:16 PM Care Teams Vendor Management Consultant Relationship Specialty [place] [id number] [address] [facility] [address] [place] [address] PCP - General Family Medicine 07/25/23 [place] [id number] [address] [facility] [address] [place] [address] Consulting Physician Neurology 06/03/21
[2024-12-12 00:24] LABS: Basophils Percent Auto 0.3 % (0.2-1.2); Eosinophils Absolute Auto 0.1 K/mm3 (0-0.3); Eosinophils Percent Auto 1.7 % (0-4.4); Hematocrit 43.2 % (42.0-52.0); Hemoglobin 14.5 g/dL (14.0-18.0); Immature Granulocyte Absolute 0.02 K/mm3 (0.00-0.031); Immature Granulocyte Percent A 0.3 % (0-0.5); Lymphocytes Absolute Auto 2.85 K/mm3 (0.9-3.2); Lymphocytes Percent Auto 38.2 % (18.3-44.2); Mean Corpuscular HGB Conc 33.6 g/dl (32-36); Mean Corpuscular Hemoglobin 29.9 pg (26-34); Mean Corpuscular Volume 89.1 fl (80-100); Mean Platelet Volume 10.3 fl (7.4-10.4); Monocytes Absolute Auto 0.6 K/mm3 (0.1-0.6); Monocytes Percent Auto 7.5 % (2.6-8.5); Neutrophils Absolute Auto 3.9 K/mm3 (1.3-6.7); Platelet Count Result 262 k/mm3 (150-375); Red Blood Count 4.85 M/mm3 (4.6-6.20); Red Cell Distribution Width 11.7 % (11.5-14.5); White Blood Count 7.5 K/mm3 (4.5-10.0)
[2024-12-12 00:59] VITALS: BP 145/87; PULSE 86; RESP 16; TEMP 36.7; O2SAT 99
== END 2024-12-12 01:01 | disposition home or self-care (01) ==
PROVIDERS: Emergency Provider Student in an Organized Health Care Education/Training Program
DX: M25.9 Joint disorder, unspecified (principal); R68.2 Dry mouth, unspecified; T38.0X5A Adverse effect of glucocorticoids and synthetic analogues, initial encounter; G35 Multiple sclerosis
CPT/HCPCS: 36415; 80053; 83735; 85025; 99283

== ENCOUNTER 2025-01-03 11:00 | Emergency (ER) | payer MEDICAID, SELFPAY ==
--- NOTE | ~2025-01-03 | CT_ITS ---
CT of the Abdomen and Pelvis: Indication: Abdominal pain Technique: 2.5 mm axial scans were obtained through the abdomen and pelvis following intravenous adm inistration of 100 cc of Omnipaque 350. Dose reduction technique was used on this scan by utilizing a utomated exposure control and iterative reconstruction technique. The dose-length product (DLP) was 1 041.50 mGy-cm. Findings: Scans through the lung bases are unremarkable. The liver, spleen, pancreas, gallbladder, adrenals and kidneys are within normal limits. No evidence of aortic aneurysm. No lymphadenopathy. No bowel obstruction or bowel wall thickening. There is no evidence to suggest acute appendicitis. Images through the pelvis were performed. Urinary bladder unremarkable. No pelvic mass present. No as cites. Impression: No significant abnormalities seen. Reviewed, dictated and finalized at location . Impression: No significant abnormalities seen.
[2025-01-03 11:01] VITALS: BP 123/70; PULSE 61; RESP 15; TEMP 36.6; O2SAT 100
--- OUTSIDE RECORDS SUMMARY | 2025-01-03 11:02 | XMS_ITS | Encounter Summary ---
Author Organization [facility] Healthcare Address [address] [place] [address] Care Team Providers Care Trackwalker Name Role Phone Sherley ROMEO MD, Edson Dubose Unavailable [phone] Dago Colunga MD Primary Care Provide r Reason for Visit * Reason Comments OP Infusion Encounter Details Date Type Department Care Team (Late st Contact Info) Description 01/02/2025 11:00 AM CDT Infusion [facility] Non-Oncology Infusion [address] [place] [id number] Multiple sclerosis (HCC) (Primary Dx) Social History Tobacco Use Types Packs/Day Years [...] week 06/01/2021 How often do you attend rastafarian or pentecostal serv ices? Never 06/01/2021 Do you belong to any clubs o r organizations such as rastafarian groups, unions, fraternal or athletic groups, or [...] place to sleep or slept in a custodial (including now)? No 06/01/2021 PHQ-9 Answer Date Recorded PHQ-9 Total Score 0 08/21/2024 Personal Safety Answer Date Recorded Have you ever been in or are you currently in a harmful physical or emotional relationship or is someone making you feel afraid or unsafe? Denies 01/02/2025 Sex and Gender Information Value Date Recorded Sex Assigned at Not on file Legal Sex Male 9:21 AM CABLE TECHNICIAN Gender Identity Male 07/14/2021 9:18 AM CABLE TECHNICIAN Sexual Orientation Straight 07/14/2021 9: 18 AM CABLE TECHNICIAN documented as of this encounter Last Filed Vital Signs Vital Sign Reading Time Taken Comments Blood Pressure 120/62 01/02/2025 10:55 AM CDT Pulse 98 01/02/2025 10:55 AM CDT Temperature 36.5 C (97.7 F) 01/02/2025 10:55 AM CDT Respiratory Rate 17 01/02/2025 10:5 5 AM CDT Oxygen Saturation 96% 01/02/2025 10: 55 AM CDT Inhaled Oxygen Concentration - - Weight 118.7 kg (261 lb 11.2 oz) 2024 10:55 AM CDT Height 192.8 cm (6' 3.91 ) 01/02/2025 1 0:55 AM CDT Body Mass Index 31.93 01/02/2025 10:55 AM CDT documented in this encounter Progress Notes * Nancy Michaud, SERA - 01/02/2025 11:00 AM CDT Patient arrived for scheduled Solu-medrol infusion. Vital signs and blood sugar stable. PIV placed with (+) blood return. Patient tolerated infusion with no complications and no complications noted in 30 minute observation period. Post infusion blood sugar was 107. PIV removed and dressing applied.Ambulatory and stable for discharge documented in this encounter Plan of Treatment Not on file documented as of this encounter Procedures Procedure Name Priority Date/Time Associated Diagnosis Comments POCT GLUCOSE DEVICE Routine 01/02/2025 1 2:43 PM CDT POCT GLUCOSE DEVICE Routine 01/02/2025 1 0:57 AM CDT documented in this encounter Results * POCT glucose (01/02/2025 12:43 PM CDT) [facility] Glucose, POC 107 70 - 199 mg/dL POC Performer [id number] JALYEEN Blood 01/02/2025 12:4 3 PM CDT 01/02/2025 12:43 PM CDT Dago Colunga MD LAB POCT ORDERABLES - DEVICE Final Result JAYLEEN LEAL [address] [facility] [place] [address] * POCT glucose (01/02/2025 10:57 AM CDT) Glucose, POC 117 70 - 199 mg/dL POC Performer [id number] JAYLEEN LEAL Blood 01/02/2025 10:5 7 AM CDT 01/02/2025 10:57 AM CDT us Dago Colunga MD LAB POCT ORDERABLES - DEVICE Final Result Performing Organization Address City/[facility]/ZIP Co de Phone Number NENAARTIE LEAL [address] [facility] [place] [address] documented in this encounter Visit Diagnoses Diagnosis Multiple sclerosis (HCC)- Primary Multiple sclerosis documented in this encounter Administered Medications Inactive Administered Medications - up to 3 most recent administrations Medication Order MAR Action Action Date Dose Rate Site methylPREDNISolone sodium succinate (SOLU-medrol) 1,000 mg in sodium chloride 0.9% 100 mL IVPB 1,000 mg, intravenous, at 252 mL/hr, Administer over 30 Minutes, Once, On Tue01/02/25 at 1145, For 1 doseIndications:Multiple sclerosis (HCC) New Bag 01/02/2025 11:39 AM CDT 1,000 mg 252 mL/hr documented in this encounter Orders Medications Ordered That Daniel ht Not Have Been Administered Count Last Ordered Date First Ordered Date methylPREDNISolone sodium monroy ccinate (SOLU-medrol) 1,000 mg in sodium chloride 0.9% 100 mL IVPB 1 01/02/2025 sodium chloride 0.9% flush 10 mL 1 01/03/20 25 Nursing Count Last Ordered Date First Orde red Date ONCBCN NURSING COMMUNICATION [id number] 1 0 01/02/2025 documented in this encounter Care Teams Trackwalker Relationship Specialty [place] [address] [address] PCP - General Family Medicine 07/25/23 [place] [id number] [address] Consulting Physician Neurology 06/03/21 documented as of this encounter
--- OUTSIDE RECORDS SUMMARY | 2025-01-03 11:02 | XMS_ITS | Encounter Summary ---
Author Organization [facility] Healthcare Address [address] [place] [address] Care Team Providers Care Cost Specialist Name Role Phone Sherley ROMEO MD, Edson Dubose Unavailable [phone] Dago Colunga MD Primary Care Provide r Reason for Visit * Reason Onset Date Comments neuroligic 12/05/2024 neurologic deficit 12/05/2024 Encounter Details Date Type Department Care Team (Late st Contact Info) Description 12/05/2024 Nurse Triage Family Care at [facility] [address] [address] [place] [address] [facility] [address] [place] [address] Social History Tobacco Use Types [...] How often do you attend evangelical or anabaptism serv ices? Never 06/01/2021 Do you belong [...] place to sleep or slept in a retirement (including now)? No 06/01/2021 PHQ-9 Answer Date Recorded PHQ-9 Total Score 0 08/21/2024 Personal Safety Answer Date Recorded Have you ever been in or are you currently in a harmful physical or emotional relationship or is someone making you feel afraid or unsafe? Denies 12/05/2024 Sex and Gender Information Value Date Recorded Sex Assigned at Not on file Legal Sex Male 9:21 AM CHILDREN'S MINISTER Gender Identity Male 07/14/2021 9:18 AM CHILDREN'S MINISTER Sexual Orientation Straight 07/14/2021 9: 18 AM CHILDREN'S MINISTER documented as of this encounter Miscellaneous Notes [...] just parts of the leg, thigh to chcf down leg, arm, hand, pinky and last [...] emergency to the triager Protocols used: Neurologic [id number] * Telephone Encounter - Estrella Sandoval RN [...] on filedocumented in this encounter Care Teams Cost Specialist Relationship Specialty [place] [address] [address] [facility] [address] [place] [address] PCP - General Family Medicine 07/25/23 [place] [address] [address] [facility] [address] [place] [address] Consulting Physician Neurology 06/03/21 documented as of this encounter
--- OUTSIDE RECORDS SUMMARY | 2025-01-03 11:02 | XMS_ITS | Encounter Summary ---
Author Organization [facility] Healthcare Address [address] [place] [address] Care Team Providers Care Emergency Veterinarian Name Role Phone Sherley ROMEO MD, Edson Dubose Unavailable Dago Colunga MD Primary Care Provide r Encounter Details Date Type Department Care Team (Late st Contact Info) Description 01/03/2025 Telephone [facility] Non-Oncology Infusion [address] [place] [address] Nancy Michaud RN Social History Tobacco Use Types Packs/Day Years [...] week 06/01/2021 How often do you attend religious or jewish serv ices? Never 06/01/2021 Do you belong to any clubs o r organizations such as religious groups, unions, fraternal or athletic groups, or [...] place to sleep or slept in a correction (including now)? No 06/01/2021 PHQ-9 Answer Date Recorded PHQ-9 Total Score 0 08/21/2024 Personal Safety Answer Date Recorded Have you ever been in or are you currently in a harmful physical or emotional relationship or is someone making you feel afraid or unsafe? Denies 01/02/2025 Sex and Gender Information Value Date Recorded Sex Assigned at Not on file Legal Sex Male 9:21 AM RECEIVING TELLER Gender Identity Male 07/14/2021 9:18 AM RECEIVING TELLER Sexual Orientation Straight 07/14/2021 9: 18 AM RECEIVING TELLER documented as of this encounter Progress Notes * Nancy Michaud, SERA - 01/03/2025 10:32 AM CDT Patient called infusion clinic asking about abdominal pain and asking if it was related to the solumedrol. Patient stated that after the steroids he walked around after an hour, then had something toeat, then went sleep around 7pm. He woke up around 6am with lower stomach cramping...not in his gutarea but the left lower abdomen. Pain is 6/10. Dr. Lepe stated he didn't believe it was related to the steroids but his recommendation would be to hold steroids and have patient present to emergency room. Patient verbalized understanding and asked if he went to the ER and they cleared him would he still be able to come to the clinic today for his steroids. Dr. Lepe okay for patient to get steroids ifcleared by ER. Informed patient that if he can get here by 3:00pm we would still be able to get himhis medication. Patient verbalized understanding. documented in this encounter Plan of Treatment Not on file documented as of this encounter Visit Diagnoses Not on filedocumented in this encounter Care Teams Emergency Veterinarian Relationship Specialty [place] [address] [address] [facility] [address] [place] [address] PCP - General Family Medicine 07/25/23 [place] [address] [address] [facility] [address] [place] [address] Consulting Physician Neurology 06/03/21 documented as of this encounter
--- OUTSIDE RECORDS SUMMARY | 2025-01-03 11:02 | XMS_ITS | Referral Summary ---
Author Organization [facility] Building [address] [place] [id number] Care Team Providers Care Job Captain Name Role Phone Sherley ROMEO MD, Edson Dubose Unavailable [phone] Dago Colunga MD Primary Care Provide r Encounters Date Type Department Care Team Description 01/03/2025 Telephone [facility] Non-Oncology Infusion [address] [place] [address] Nancy Michaud, SERA 01/02/2025 11:00 AM CDT Infusion [facility] Non-Oncology Infusion [address] [place] [address] Multiple sclerosis (HCC) (Primary Dx) 01/01/2025 Documentation [facility] Rehabilitation Services at [address] [place] [address] Avtar Rossi, PT Left Without Being Seen 01/01/2025 11:00 AM CDT Infusion [facility] Non-Oncology Infusion [address] [place] [address] Multiple sclerosis (HCC) (Primary Dx) 12/31/2024 10:00 AM CDT Infusion [facility] Non-Oncology Infusion [address] [place] [address] Multiple sclerosis (HCC) (Primary Dx) 12/26/2024 Orders Only [facility] Non-Oncology Infusion [address] [place] [address] Nancy Michaud RN 12/26/2024 8:30 AM CDT [facility] [id number] [place] [address] [address], [place] [address] Edson Lepe II, MD Multiple sclerosis (HCC) (Primary Dx); Left hemiparesis (HCC) 12/19/2024 Telephone [facility] [id number] [place] [address] [address], [place] [address] Edson Lepe II, MD 12/05/2024 11:45 PM CDT - 12/05/2024 11:46 PM CDT Emergency [facility] Emergency Department [address] [place] [address] Discharge Disposition: Left without being seen 12/05/2024 Nurse Triage [facility] at [address] [address] Dago Colunga MD 11/27/2024 3:20 PM CDT Office Visit [facility]) [facility] [address] [place] [address] Medical Office Building [address] [place] [address] Nica Kim NP Tinnitus, unspecified laterality (Primary Dx); Multiple sclerosis (HCC); Stress 11/27/2024 2:45 PM CDT Procedure visit [facility] Otolaryngology [address] [place] [address] Medical Office Building [address] [place] [address] Estrada Alaniz Au.D. Dizziness from Last 3 Months Allergies Active Allergy Reactions Criticality Noted Date Comments Cat Dander Sneezing Low 07/14/2021 Dog Dander Sneezing Low 07/14/2021 House Dust Sneezing Low 07/14/2021 Pollen Extracts Sneezing Low 07/14/2021 Spider Venom Rash Medium 07/14/2021 Venom-Wasp Shortness of breath High 07/14/2021 Medications omega 5-hfa-ild-fish oil (Fish OiL) 1,000 (120-180) mg capsule Take by mouth daily Active cholecalciferol , vitamin D3, 1,000 unit tablet,chewable Take 1 tablet/chew tab by mouth daily Active predniSONE (DELTASONE) 20 mg tablet 1 tablet (20 mg) 5 Active celecoxib (CeleBREX) 50 mg capsule Take 1 capsule (50 mg total) by mouth 2 (two) times a day Patient got 1 month supply at ER Active ocrelizumab, OCREVUS ZUNOVO, (Ocrevus Zunovo) 920 mg-23,000 unit/23 mL solution Inject 23 mL (920 mg total) under the skin every 6 (six) months 5 Active teriflunomide 14 mg tabletIndicatio ns:relapsing form of multiple sclerosis Take 1 tablet (14 mg total) by mouth daily 90 tablet 2 4 12/20/19 25 Discontinu ed(Reorder ) teriflunomide 14 mg tabletIndicatio ns:relapsing form of multiple sclerosis Take 1 tablet (14 mg total) by mouth daily 90 tablet 5 01/01/20 25 Discontinu ed(Alterna te therapy) Active Problems Problem Noted Date Diagnosed Date Left hemiparesis 01/01/2025 Obesity (BMI 30-39.9) 08/21/2024 Assessment & Plan (08/21/2024 8:54 AM PHOTOENGRAVING FINISHER): BMI follow-up: Education provided Encounter for well adult exam without abnormal f indings 02/17/2022 Assessment & Plan (02/17/2022 9:33 PM CDT): Reviewed current problem list and reconciled Meds. Patient is up-to-date on his immunizations. Multiple sclerosis 05/29/2021 Assessment & Plan (08/21/2024 8:54 AM PHOTOENGRAVING FINISHER): Management by Neurology teriflunomide 14 mg tablet daily Assessment & Plan (02/17/2023 9:45 PM CDT): Patient under the care of neurologist. However patient has been out his current Meds due to cost and loss of insurance coverage. Discussed referral to MS clinic at [facility]. Patient reports episodes of weakness due to lack of Meds. Assessment & Plan (02/17/2022 9:35 PM CDT): Patient under the care of neurologist. Reviewed current Meds. Vision disturbance 05/28/2021 Assessment & Plan (02/17/2022 9:34 PM CDT): Patient under the care of pizzamaker. Immunizations Immunization Administration Dates Next Due Influenza, [...] How often do you attend religious or orthodoxy serv ices? Never 06/01/2021 Do you belong [...] place to sleep or slept in a senior living (including now)? No 06/01/2021 PHQ-9 Answer Date Recorded PHQ-9 Total Score 0 08/21/2024 Personal Safety Answer Date Recorded Have you ever been in or are you currently in a harmful physical or emotional relationship or is someone making you feel afraid or unsafe? Denies 01/02/2025 Sex and Gender Information Value Date Recorded Sex Assigned at Not on file Legal Sex Male 9:21 AM PHOTOENGRAVING FINISHER Gender Identity Male 07/14/2021 9:18 AM PHOTOENGRAVING FINISHER Sexual Orientation Straight 07/14/2021 9: 18 AM PHOTOENGRAVING FINISHER Last Filed Vital Signs Vital Sign Reading [...] Mass Index 31.93 01/02/2025 10:55 AM CDT Plan of Treatment Not on file Procedures Procedure Name Priority Date/Time Associated Diagnosis Comments POCT GLUCOSE DEVICE Routine 01/02/2025 1 2:43 PM CDT POCT GLUCOSE DEVICE Routine 01/02/2025 1 0:57 AM CDT POCT GLUCOSE DEVICE Routine 01/01/2025 1 2:26 PM CDT POCT GLUCOSE DEVICE Routine 01/01/2025 1 1:02 AM CDT POCT GLUCOSE DEVICE Routine 12/31/2024 1 1:31 AM CDT POCT GLUCOSE DEVICE Routine 12/31/2024 9 :53 AM CDT EGFR STAT 12/05/2024 10:00 PM CDT DIFFERENTIAL [...] CDT AUDBASE RESULTS 11/27/2024 2:54 PM CDT HEPATITIS PANEL, ACUTE Routine 10:25 AM PHOTOENGRAVING FINISHER Multiple sclerosis (HCC) from Last 3 Months or Most Recently Relevant to Health Maintenance Results * POCT glucose (01/02/2025 12:43 PM CDT) Glucose, POC 107 70 - 199 mg/dL POC Performer [id number] CERNER CH Blood 01/02/2025 12:4 3 PM CDT 01/02/2025 12:43 PM CDT Dago Colunga MD LAB POCT ORDERABLES - DEVICE Final Result Performing Organization Address [facility] Phone Number JAYLEEN LEAL [address] [address] [facility] [employer] [place], [place] [id number] * POCT glucose (01/02/2025 10:57 AM CDT) Glucose, POC 117 70 - 199 mg/dL POC Performer [id number] CERNER CH Blood 01/02/2025 10:5 7 AM CDT 01/02/2025 10:57 AM CDT Dago Colunga MD LAB POCT ORDERABLES - DEVICE Final Result Performing Organization Address [facility] Phone Number JAYLEEN ELVIS [address] [address] [facility] [place] [address] * POCT glucose (01/01/2025 12:26 PM CDT) Glucose, POC 117 70 - 199 mg/dL POC Performer [id number] CERNER CH Blood 01/01/2025 12:2 6 PM CDT 01/01/2025 12:26 PM CDT Dago Colunga MD LAB POCT ORDERABLES - DEVICE Final Result Performing Organization Address [facility]/State/ZIP Co de Phone Number JAYLEEN LEAL [phone] [address] [facility] [place] [address] * POCT glucose (01/01/2025 11:02 AM CDT) Glucose, POC 154 70 - 199 mg/dL POC Performer [id number] CERNER CH Blood 01/01/2025 11:0 2 AM CDT 01/01/2025 11:02 AM CDT Dago Colunga MD LAB POCT ORDERABLES - DEVICE Final Result Performing Organization Address [facility] Co de Phone Number JAYLEEN LEAL [address] [address] [facility] [place] [address] * POCT glucose (12/31/2024 11:31 AM CDT) Glucose, POC 134 70 - 199 mg/dL POC Performer [id number] CERNER CH Blood 12/31/2024 11:3 1 AM CDT 12/31/2024 11:31 AM CDT Edson Lepe II, MD LAB POCT ORDERABLES - DEVICE Final Result Performing Organization Address [facility] Co de Phone Number NENAARTIE LEAL [address] [address] [facility] [place] [address] * POCT glucose (12/31/2024 9:53 AM CDT) Glucose, POC 119 70 - 199 mg/dL POC Performer [id number] CERNER CH Blood 12/31/2024 9:53 AM CDT 12/31/2024 9:53 AM CDT Edson Lepe II, MD LAB POCT ORDERABLES - DEVICE Final Result Performing Organization Address [facility] Co de Phone Number JAYLEEN LEAL [address] [address] [facility] [place] [address] * eGFR (12/05/2024 10:00 PM CDT) Pathologist [facility] eGFR >90 >=60 mL/min/1. 73 m2 Comment: [...] COFFEY LAB BLOOD ORDERABLES Final Result JAYLEEN [address] [place] [address] * Differential, auto (12/05/2024 10:00 PM CDT) Pathologist [facility] Neutrophil abs 4.26 1.50 - 6.50 K/cumm Imm gran abs 0.01 0.00 - 0.10 K/cumm [facility] Lymphocyte abs 2.86 0.80 - 3.30 K/cumm [facility] Monocyte abs 0.71 0.20 - 0.80 K/cumm [facility] Eosinophil abs 0.08 0.00 - 0.50 K/cumm [facility] Basophil abs 0.02 0.00 - 0.10 K/cumm [facility] Neutrophil pct 53.7 % [facility] Comment: Interpretive Data Percent cell count reference ranges are not reported, since discordance with absolute values may lead to misinterpretation of CBC data. Current Interpretive Data was last revised on 2017. Imm gran pct 0.1 % CERNER Comment: Interpretive Data Percent cell [...] revised on 2017. Basophil pct 0.3 % [facility] Comment: Interpretive Data Percent cell count reference ranges are not reported, since discordance with absolute values may lead to misinterpretation of CBC data. Current Interpretive Data was last revised on 2017. Blood 12/05/2024 10:0 0 PM CDT 12/05/2024 10:00 PM CDT Johan COFFEY LAB BLOOD ORDERABLES Final Result Performing Organization Address [facility]/ZIP Co de Phone Number [facility] [phone] [address] [place] [address] * Thyroid Function [place] (12/05/2024 10:00 PM CDT) TSH 1.00 0.30 - 4.20 mcIUnit/mL Blood 12/05/2024 10:0 0 PM CDT 12/05/2024 10:00 PM CDT Johan COFFEY LAB BLOOD ORDERABLES Final Result Performing Organization Address City/[facility]/ZIP Co de Phone Number JAYLEEN LEAL [phone] [address] [place] [address] * CBC with auto differential (12/05/2024 10:00 PM CDT) [facility] WBC 7.94 3.80 - 9.90 K/cumm Hgb 14.3 13.0 - 17.5 g/dL [facility] Hct 42.1 38.9 - 50.3 % [facility] Plt 250 150 - 400 K/cumm [facility] MPV 10.2 9.1 - 12.3 fL [facility] RBC 4.74 4.30 - 5.80 M/cumm [facility] MCV 88.8 81.3 - 96.4 fL [facility] MCH 30.2 27.1 - 33.3 pg [facility] MCHC 34.0 32.3 - 35.7 g/dL [facility] RDW CV 11.5 11.1 - 14.9 % [facility] RDW SD 36.7 35.7 - 48.1 fL [facility] NRBC abs 0.00 0.00 - 0.01 K/cumm [facility] Blood Venous blood specimen / Unknown 12/05/2024 10:00 PM CDT 12/05/2024 10:00 PM CDT Johan COFFEY LAB BLOOD ORDERABLES Final Result Performing Organization Address City/[facility]/ZIP Co de Phone Number JAYLEEN LEAL [address] [address] [place] [address] * Phosphorus (12/05/2024 10:00 PM CDT) [facility] Phosphorus, pl 3.7 2.3 - 4.5 mg/dL Blood 12/05/2024 10:0 0 PM CDT 12/05/2024 10:00 PM CDT Johan COFFEY LAB BLOOD ORDERABLES Final Result JAYLEEN LEAL [address] [address] [place] [address] * Magnesium (12/05/2024 10:00 PM CDT) Magnesium 2.2 1.4 - 2.5 mg/dL Blood 12/05/2024 10:0 0 PM CDT 12/05/2024 10:00 PM CDT Johan COFFEY LAB BLOOD ORDERABLES Final Result [facility] [address] [address] [place] [address] * Comprehensive metabolic panel (12/05/2024 10:00 PM [...] LAB BLOOD ORDERABLES Final Result JAYLEEN LEAL [address] [place] [address] * CT Head WO Contrast (12/05/2024 6:39 [...] Scanning AUDIOLOGY SERVICES ORDERABLES Final Result * Hepatitis panel, acute (07/14/2021 10:25 AM PHOTOENGRAVING FINISHER) Hep A IgM Nonreactive Nonreactive [facility] Comment: Interpretive Data: If Hep A IgM Ab is reported as Equivocal, a new sample should be drawn in two weeks for testing. Current interpretive data was last revised on 19. Hep B core IgM Nonreactive Nonreactive [facility] Comment: Interpretive Data If HepB Core IgM Ab is reported as Equivocal, a new sample should be drawn in two weeks for testing. Current interpretive data was last revised on 19. Hep C Ab Nonreactive Nonreactive [facility] Comment: Interpretive Data Nonreactive: Antibodies to HCV [...] last revised on 2019. HepBsAg Nonreactive Nonreactive [facility] Blood 07/14/2021 10:2 5 AM PHOTOENGRAVING FINISHER 07/14/2021 3:26 PM PHOTOENGRAVING FINISHER Edson Lepe II, MD LAB MICROBIOLOGY - GENERAL O RDERABLES Final Result JAYLEEN [address] [place] [address] from Last 3 Months or Most Recently Relevant to Health Maintenance Insurance [facility] Advance Directives For more information, please contact: [phone] * Full Code (Latest Code Status on File) Date Activated Date Inactivated Comments 05/29/2021 1:10 AM 06/03/2021 10:16 PM Care Teams Job Captain Relationship Specialty [place] [id number] [address] [facility] [address] [place] [address] PCP - General Family Medicine 07/25/23 [place] [address] [address] [facility] [address] [place] [address] Consulting Physician Neurology 06/03/21
--- OUTSIDE RECORDS SUMMARY | 2025-01-03 11:02 | XMS_ITS | Clinical Summary ---
Author Organization [facility] Physician Office Building [address] [place] [address] Care Team Providers Care Melangeur Operator Name Role Phone Sherley ROMEO MD, Edson Dubose Unavailable [phone] Dago Colunga MD Primary Care Provide r Allergies Active Allergy Reactions Criticality Noted Date Comments Cat Dander Sneezing Low 07/14/2021 Dog Dander Sneezing Low 07/14/2021 House Dust Sneezing Low 07/14/2021 Pollen Extracts Sneezing Low 07/14/2021 Spider Venom Rash Medium 07/14/2021 Venom-Wasp Shortness of breath High 07/14/2021 Medications omega 5-rnx-dcu-fish oil (Fish OiL) 1,000 (120-180) mg capsule [...] 08/21/2024 Assessment & Plan (08/21/2024 8:54 AM PULP BEATER): BMI follow-up: Education provided Encounter for well adult exam without abnormal f indings 02/17/2022 Assessment & Plan (02/17/2022 9:33 PM CDT): Reviewed current problem list and reconciled Meds. Patient is up-to-date on his immunizations. Multiple sclerosis 05/29/2021 Assessment & Plan (08/21/2024 8:54 AM PULP BEATER): Management by Neurology teriflunomide 14 mg tablet daily Assessment & Plan (02/17/2023 9:45 PM CDT): Patient under the care of neurologist. However patient has been out his current Meds due to cost and loss of insurance coverage. Discussed referral to MS clinic at [facility]. Patient reports episodes of weakness due to lack of Meds. Assessment & Plan (02/17/2022 9:35 PM CDT): Patient under the care of neurologist. Reviewed current Meds. 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 Encounters Date Type Department Care Team Description 01/03/2025 Telephone [facility] Non-Oncology Infusion [address] [place] [address] Nancy Michaud, SERA 01/02/2025 11:00 AM CDT Infusion [facility] Non-Oncology Infusion [address] [place] [address] Multiple sclerosis (HCC) (Primary Dx) 01/01/2025 11:00 AM CDT Infusion [facility] Non-Oncology Infusion [address] [place] [address] Multiple sclerosis (HCC) (Primary Dx) 01/01/2025 Documentation [facility] Rehabilitation Services at [address] [place] [address] Avtar Rossi, PT Left Without Being Seen 12/31/2024 10:00 AM CDT Infusion [facility] Non-Oncology Infusion [address] [place] [address] Multiple sclerosis (HCC) (Primary Dx) 12/26/2024 8:30 AM CDT Office Visit [facility] [address], [place] [address] Edson Lepe II, MD Multiple sclerosis (HCC) (Primary Dx); Left hemiparesis (HCC) 12/26/2024 Orders Only [facility] Non-Oncology Infusion [address] [place] [address] Nancy Michaud RN 12/19/2024 Telephone [facility] [address] [address] Edson Lepe II, MD 12/05/2024 11:45 PM CDT - 12/05/2024 11:46 PM CDT Emergency [facility] Emergency Department [address] [place] [address] Discharge Disposition: Left without being seen 12/05/2024 Nurse Triage [facility] at [address] [place] [address] Dago Colunga MD 11/27/2024 3:20 PM CDT Office Visit [facility] [address] [place] [address] Medical Office Building [address] [place] [address] Nica Kim NP Tinnitus, unspecified laterality (Primary Dx); Multiple sclerosis (HCC); Stress 11/27/2024 2:45 PM CDT Procedure visit [facility] Otolaryngology [address] [facility] Medical Office Building [address] [place] [address] Estrada Alaniz Au.D. Dizziness from Last 3 Months Immunizations Immunization Administration [...] week 06/01/2021 How often do you attend islam or scientologist serv ices? Never 06/01/2021 Do you belong to any clubs o r organizations such as islam groups, unions, fraternal or athletic groups, or [...] on file Legal Sex Male 9:21 AM PULP BEATER Gender Identity Male 07/14/2021 9:18 AM PULP BEATER Sexual Orientation Straight 07/14/2021 9: 18 AM PULP BEATER Obstetrics History Last Filed Vital Signs Vital [...] 01/02/2025 10:55 AM CDT Plan of Treatment Health Maintenance Due Date Last Done Comments HPV Vaccines (1 - Male 3-dose series) 12/06/2014 Covid-19 Vaccine (2 - season) 2024 08/13/2021 Depression Screening 08/21/2025 [...] 2:54 PM CDT HEPATITIS PANEL, ACUTE Routine 1 10:25 AM PULP BEATER Multiple sclerosis (HCC) from Last 3 Months or Most Recently Relevant to Health Maintenance Results * POCT glucose (01/02/2025 12:43 PM CDT) Glucose, POC 107 70 - 199 mg/dL POC Performer [id number] JAYLEEN LEAL Blood 01/02/2025 12:4 3 PM CDT 01/02/2025 12:43 PM CDT us Dgao Colunga MD LAB POCT ORDERABLES - DEVICE Final Result JAYLEEN LEAL [address] [facility] [email or web address] [address] * POCT glucose (01/02/2025 10:57 AM CDT) Glucose, POC 117 70 - 199 mg/dL POC Performer [id number] CERNER CH Blood 01/02/2025 10:5 7 AM CDT 01/02/2025 10:57 AM CDT Dago Colunga MD LAB POCT ORDERABLES - DEVICE Final Result Performing Organization Address City/[facility]/ZIP Co de Phone Number JAYLEEN LEAL [address] [place] [address] * POCT glucose (01/01/2025 12:26 PM CDT) Glucose, POC 117 70 - 199 mg/dL POC Performer [id number] CERNER CH Blood 01/01/2025 12:2 6 PM CDT 01/01/2025 12:26 PM CDT Dago Colunga MD LAB POCT ORDERABLES - DEVICE Final Result Performing Organization Address [facility] Co de Phone Number JAYLEEN LEAL [address] [place] [address] * POCT glucose (01/01/2025 11:02 AM CDT) Glucose, POC 154 70 - 199 mg/dL POC Performer [id number] CERNER CH Blood 01/01/2025 11:0 2 AM CDT 01/01/2025 11:02 AM CDT Dago Colunga MD LAB POCT ORDERABLES - DEVICE Final Result Performing Organization Address City/[facility]/ZIP Co de Phone Number JAYLEEN LEAL [id number] [facility] [email or web address] [address] * POCT glucose (12/31/2024 11:31 AM CDT) Glucose, POC 134 70 - 199 mg/dL POC Performer [id number] CERNER Blood 12/31/2024 11:3 1 AM CDT 12/31/2024 11:31 AM CDT Edson Lepe II, MD LAB POCT ORDERABLES - DEVICE Final Result Performing Organization Address [facility] Co de Phone Number JAYLEEN [address] [address] [email or web address] [address] * POCT glucose (12/31/2024 9:53 AM CDT) Glucose, POC 119 70 - 199 mg/dL POC Performer [id number] [facility] Blood 12/31/2024 9:53 AM CDT 12/31/2024 9:53 AM CDT Edson Lepe II, MD LAB POCT ORDERABLES - DEVICE Final Result Performing Organization Address [facility]/[place] de Phone Number JAYLEEN [phone] [facility] [email or web address] [address] * eGFR (12/05/2024 10:00 PM CDT) eGFR [...] Johan COFFEY LAB BLOOD ORDERABLES Final Result [facility] [address] Department [place] [address] * Differential, auto (12/05/2024 10:00 PM CDT) Neutrophil abs 4.26 1.50 - 6.50 K/cumm Imm gran abs 0.01 0.00 - 0.10 K/cumm [facility] Lymphocyte abs 2.86 0.80 - 3.30 K/cumm [facility] Monocyte abs 0.71 0.20 - 0.80 K/cumm [facility] Eosinophil abs 0.08 0.00 - 0.50 K/cumm [facility] Basophil abs 0.02 0.00 - 0.10 K/cumm [facility] Neutrophil pct 53.7 % [facility] Comment: Interpretive Data Percent cell count reference ranges are not reported, since discordance with absolute values may lead to misinterpretation of CBC data. Current Interpretive Data was last revised on 2017. Imm gran pct 0.1 % [facility] Comment: Interpretive Data Percent cell count reference ranges are not reported, since discordance with absolute values may lead to misinterpretation of CBC data. Current Interpretive Data was last revised on 2017. Lymphocyte pct 36.0 % [facility] Comment: Interpretive Data Percent cell count reference ranges are not reported, since discordance with absolute values may lead to misinterpretation of CBC data. Current Interpretive Data was last revised on 2017. Monocyte pct 8.9 % [facility] Comment: Interpretive Data Percent cell count reference ranges are not reported, since discordance with absolute values may lead to misinterpretation of CBC data. Current Interpretive Data was last revised on 2017. Eosinophil pct 1.0 % [facility] Comment: Interpretive Data Percent cell count reference ranges are not reported, since discordance with absolute values may lead to misinterpretation of CBC data. Current Interpretive Data was last revised on 2017. Basophil pct 0.3 % [facility] Comment: Interpretive Data Percent cell count reference ranges are not reported, since discordance with absolute values may lead to misinterpretation of CBC data. Current Interpretive Data was last revised on 2017. Blood 12/05/2024 10:0 0 PM CDT 12/05/2024 10:00 PM CDT Johan COFFEY LAB BLOOD ORDERABLES Final Result Performing Organization Address City/[facility]/ZIP Co de Phone Number JAYLEEN LEAL [address] Department of Laboratories [place], [place] [id number] * Thyroid Function [place] (12/05/2024 10:00 PM CDT) Pathologist [facility] TSH 1.00 0.30 - 4.20 mcIUnit/mL Blood 12/05/2024 10:0 0 PM CDT 12/05/2024 10:00 PM CDT Johan COFFEY LAB BLOOD ORDERABLES Final Result Performing Organization Address City/[facility] Co de Phone Number JAYLEEN LEAL [address] [email or web address] [address] * CBC with auto differential (12/05/2024 10:00 PM CDT) Pathologist [facility] WBC 7.94 3.80 - 9.90 K/cumm Hgb 14.3 13.0 - 17.5 g/dL [facility] Hct 42.1 38.9 - 50.3 % [facility] Plt 250 150 - 400 K/cumm [facility] MPV 10.2 9.1 - 12.3 fL [facility] RBC 4.74 4.30 - 5.80 M/cumm [facility] MCV 88.8 81.3 - 96.4 fL [facility] MCH 30.2 27.1 - 33.3 pg [facility] MCHC 34.0 32.3 - 35.7 g/dL [facility] RDW CV 11.5 11.1 - 14.9 % [facility] RDW SD 36.7 35.7 - 48.1 fL [facility] NRBC abs 0.00 0.00 - 0.01 K/cumm [facility] Blood Venous blood specimen / Unknown 12/05/2024 10:00 PM CDT 12/05/2024 10:00 PM CDT Johan COFFEY LAB BLOOD ORDERABLES Final Result NENAARTIE LEAL [address] [email or web address] [address] * Phosphorus (12/05/2024 10:00 PM CDT) Pathologist [facility] Phosphorus, pl 3.7 2.3 - 4.5 mg/dL Blood 12/05/2024 10:0 0 PM CDT 12/05/2024 10:00 PM CDT Johan COFFEY LAB BLOOD ORDERABLES Final Result Performing Organization Address City/[facility] Co de Phone Number NENAARTIE LEAL [address] [facility] [email or web address] [address] * Magnesium (12/05/2024 10:00 PM CDT) [facility] Magnesium 2.2 1.4 - 2.5 mg/dL Blood 12/05/2024 10:0 0 PM CDT 12/05/2024 10:00 PM CDT Johan COFFEY LAB BLOOD ORDERABLES Final Result Performing Organization Address City/[facility]/ZIP Co de Phone Number NENAARTIE LEAL [address] [facility] [email or web address] [address] * Comprehensive metabolic panel (12/05/2024 10:00 PM CDT) Pathologist [facility] Sodium 140 135 - 145 [...] COFFEY LAB BLOOD ORDERABLES Final Result JAYLEEN [address] Department [place] [address] * CT Head WO Contrast (12/05/2024 6:39 [...] soft tissues are unremarkable. Procedure Note Johan Csatellanos II, DO - 12/05/2024 EXAMINATION: CT HEAD [...] * Hepatitis panel, acute (07/14/2021 10:25 AM PULP BEATER) Hep A IgM Nonreactive Nonreactive JAYLEEN LEAL Comment: Interpretive Data: If Hep A IgM Ab is reported as Equivocal, a new sample should be drawn in two weeks for testing. Current interpretive data was last revised on 19. Hep B core IgM Nonreactive Nonreactive JAYLEEN LEAL Comment: Interpretive Data If HepB Core IgM Ab is reported as Equivocal, a new sample should be drawn in two weeks for testing. Current interpretive data was last revised on 19. Hep C Ab Nonreactive Nonreactive JAYLEEN Comment: Interpretive Data Nonreactive: Antibodies to HCV [...] Nonreactive JAYLEEN Blood 07/14/2021 10:2 5 AM PULP BEATER 07/14/2021 3:26 PM PULP BEATER Edson Lepe II, MD LAB MICROBIOLOGY - GENERAL O RDERABLES Final Result NENAARTIE [address] Department [place] [address] from Last 3 Months or Most Recently Relevant to Health Maintenance Insurance [facility] Advance Directives For more information, please contact: [phone] * Full Code (Latest Code Status on File) Date Activated Date Inactivated Comments 05/29/2021 1:10 AM 06/03/2021 10:16 PM Care Teams Melangeur Operator Relationship Specialty [place] [id number] [address] [facility] [address] [place] [address] PCP - General Family Medicine 07/25/23 [place] [id number] [address] [facility] [address] [place] [address] Consulting Physician Neurology 06/03/21
--- OUTSIDE RECORDS SUMMARY | 2025-01-03 11:03 | XMS_ITS | Clinical Summary ---
Author Organization [email or web address] Zohra sheridan Address [address] [place] [address] [place] [address] Phone Care Team Providers Care Client Relations Specialist Name Role Phone Unavailable Primary Care Provider Unavailabl e Allergies No known active allergies Medications No known medications Active Problems No known active problems Encounters Date Type Department Care Team Description 01/01/2025 External Device Data [facility] Provider, Abstract 10/09/2024 External Device Data [facility] Provider, [...]
--- OUTSIDE RECORDS SUMMARY | 2025-01-03 11:03 | XMS_ITS | Encounter Summary ---
Author Organization [employer] Address [address] [place] [address] Care Team Providers Care Lead Burner Supervisor Name Role Phone Unavailable Primary Care Provider Unavailabl e Encounter Details Date Type Department Care Team (Late st Contact Info) Description 01/01/2025 External Device Data [facility] Provider, Abstract NO ADDRESS ON FILE Social History Tobacco Use Types Packs/Day Years Used Date Smoking Tobacco: Never Sex and Gender Information Value Date Recorded Sex Assigned at Not on file Legal Sex Male 3:31 PM CDT Gender Identity Not on file Sexual Orientation Not on file documented as of this encounter Plan of Treatment Not on file documented as of this encounter Visit Diagnoses Not on filedocumented in this encounter
[2025-01-03 11:41] LABS: Basophils Percent Auto 0.1 % (0.2-1.2); Hematocrit 41.4 % (42.0-52.0); Hemoglobin 13.6 g/dL (14.0-18.0); Immature Granulocyte Absolute 0.07 K/mm3 (0.00-0.031); Immature Granulocyte Percent A 0.6 % (0-0.5); Lymphocytes Absolute Auto 0.77 K/mm3 (0.9-3.2); Lymphocytes Percent Auto 6.2 % (18.3-44.2); Mean Corpuscular HGB Conc 32.9 g/dl (32-36); Mean Corpuscular Hemoglobin 29.9 pg (26-34); Mean Platelet Volume 10.6 fl (7.4-10.4); Monocytes Absolute Auto 0.5 K/mm3 (0.1-0.6); Monocytes Percent Auto 4.3 % (2.6-8.5); Neutrophils Percent Auto 88.8 % (45.5-73.1); Platelet Count Result 244 k/mm3 (150-375); Red Blood Count 4.55 M/mm3 (4.6-6.20); Red Cell Distribution Width 11.7 % (11.5-14.5); White Blood Count 12.4 K/mm3 (4.5-10.0)
[2025-01-03 11:52] LABS: Alanine Aminotransferase 31 U/L (6-50); Albumin Level 4.3 g/dL (3.5-5.1); Alkaline Phosphatase 54 U/L (38-126); Anion Gap 7 mmol/L (4-12); Aspartate Amino Transferase 26 U/L (17-59); Blood Urea Nitrogen 27 mg/dL (9-20); Calcium 9.2 mg/dL (8.4-10.2); Carbon Dioxide 29 mmol/L (22-30); Chloride 103 mmol/L (98-107); Estimated CRCL calculation 164 ml/min; Estimated Glomerular Filt Rate > 60; Glucose 151 mg/dL (65-110); Lipase 86 U/L (23-300); Potassium 3.7 mmol/L (3.4-5.0); Sodium 139 mmol/L (137-145)
--- OUTSIDE RECORDS SUMMARY | 2025-01-03 12:25 | XMS_ITS | Clinical Summary ---
Author Organization [employer] Zohra sheridan Address [address] [place] [address] [place] [address] Phone Care Team Providers Care Field Representative Name Role Phone Unavailable Primary Care Provider [...]
--- OUTSIDE RECORDS SUMMARY | 2025-01-03 12:25 | XMS_ITS | Clinical Summary ---
Author Organization [facility] Physician Office Building [address] [place] [id number] Care Team Providers Care Manager Personal Name Role Phone Sherley ROMEO MD, Edson Dubose Unavailable Dago Colunga MD Primary Care Provide r Allergies Active Allergy Reactions Criticality Noted Date Comments Cat Dander Sneezing Low 07/14/2021 Dog Dander Sneezing Low 07/14/2021 House Dust Sneezing Low 07/14/2021 Pollen Extracts Sneezing Low 07/14/2021 Spider Venom Rash Medium 07/14/2021 Venom-Wasp Shortness of breath High 07/14/2021 Medications omega 4-acm-kxs-fish oil (Fish OiL) 1,000 (120-180) mg capsule [...] 08/21/2024 Assessment & Plan (08/21/2024 8:54 AM SALESPERSON [employer]ARD [employer]): BMI follow-up: Education provided Encounter for well adult exam without abnormal f indings 02/17/2022 Assessment & Plan (02/17/2022 9:33 PM CDT): Reviewed current problem list and reconciled Meds. Patient is up-to-date on his immunizations. Multiple sclerosis 05/29/2021 Assessment & Plan (08/21/2024 8:54 AM SALESPERSON [employer]): Management by Neurology teriflunomide 14 mg tablet daily Assessment & Plan (02/17/2023 9:45 PM CDT): Patient under the care of neurologist. However patient has been out his current Meds due to cost and loss of insurance coverage. Discussed referral to MS clinic at [facility]. Patient reports episodes of weakness due to lack of Meds. Assessment & Plan (02/17/2022 9:35 PM CDT): Patient under the care of neurologist. Reviewed current Meds. Vision disturbance 05/28/2021 Assessment & Plan (02/17/2022 9:34 PM CDT): Patient under the care of digital associate. Encounters Date Type Department Care Team Description 01/03/2025 Telephone [facility] Non-Oncology Infusion [address] [place] [address] Nancy Michaud, SERA 01/02/2025 11:00 AM CDT Infusion [facility] Non-Oncology Infusion [address] [place] [address] Multiple sclerosis (HCC) (Primary Dx) 01/01/2025 11:00 AM CDT Infusion [facility] Non-Oncology Infusion [address] [place] [address] Multiple sclerosis (HCC) (Primary Dx) 01/01/2025 Documentation [facility] Rehabilitation Services at [address] [place] [address] Avtar Rossi, PT Left Without Being Seen 12/31/2024 10:00 AM CDT Infusion [facility] Non-Oncology Infusion [id number] [place] [address] Multiple sclerosis (HCC) (Primary Dx) 12/26/2024 8:30 AM CDT Office Visit [facility] [address] [address] Edson Lepe II, MD Multiple sclerosis (HCC) (Primary Dx); Left hemiparesis (HCC) 12/26/2024 Orders Only [facility] Non-Oncology Infusion [address] [place] [address] Nancy Michaud RN 12/19/2024 Telephone [facility] [address] [address] Edson Lepe II, MD 12/05/2024 11:45 PM CDT - 12/05/2024 11:46 PM CDT Emergency [facility] Emergency Department [address] [place] [address] Discharge Disposition: Left without being seen 12/05/2024 Nurse Triage [facility] at [address] [place] [address] Dago Colunga MD 11/27/2024 3:20 PM CDT Office Visit [facility] [address] [place] [address] Medical Office Building [address] [place] [address] Nica Kim NP Tinnitus, unspecified laterality (Primary Dx); Multiple sclerosis (HCC); Stress 11/27/2024 2:45 PM CDT Procedure visit [facility] Otolaryngology [address] [facility] Medical Office Building [address] [place] [address] Estrada Alaniz Au.D. Dizziness from [...] week 06/01/2021 How often do you attend hindu or rastafari serv ices? Never 06/01/2021 Do you belong to any clubs o r organizations such as hindu groups, unions, fraternal or athletic groups, or [...] place to sleep or slept in a halfway (including now)? No 06/01/2021 PHQ-9 Answer Date Recorded PHQ-9 Total Score 0 08/21/2024 Personal Safety Answer Date Recorded Have you ever been in or are you currently in a harmful physical or emotional relationship or is someone making you feel afraid or unsafe? Denies 01/02/2025 Sex and Gender Information Value Date Recorded Sex Assigned at Not on file Legal Sex Male 9:21 AM SALESPERSON [employer]ARD [employer] Gender Identity Male 07/14/2021 9:18 AM SALESPERSON [employer]ARD [employer] Sexual Orientation Straight 07/14/2021 9: 18 AM SALESPERSON [employer]ARD [employer] Obstetrics History Last Filed Vital Signs Vital [...] HEPATITIS PANEL, ACUTE Routine 1 10:25 AM SALESPERSON [employer]ARD [employer] Multiple sclerosis (HCC) from Last 3 Months or Most Recently Relevant to Health Maintenance Results * POCT glucose (01/02/2025 12:43 PM CDT) Glucose, POC 107 70 - 199 mg/dL POC Performer [id number] JAYLEEN LEAL Blood 01/02/2025 12:4 3 PM CDT 01/02/2025 12:43 PM CDT us Dago Colunga MD LAB POCT ORDERABLES - DEVICE Final Result JAYLEEN LEAL [id number] [facility] [place] [address] * POCT glucose (01/02/2025 10:57 AM CDT) Glucose, POC 117 70 - 199 mg/dL POC Performer [id number] CERNER CH Blood 01/02/2025 10:5 7 AM CDT 01/02/2025 10:57 AM CDT Dago Colunga MD LAB POCT ORDERABLES - DEVICE Final Result Performing Organization Address City/[facility]/ZIP Co de Phone Number JAYLEEN LEAL [address] [place] [address] * POCT glucose (01/01/2025 12:26 PM CDT) Glucose, POC 117 70 - 199 mg/dL POC Performer [id number] CERNER CH Blood 01/01/2025 12:2 6 PM CDT 01/01/2025 12:26 PM CDT Dago Colunga MD LAB POCT ORDERABLES - DEVICE Final Result Performing Organization Address [facility] Co de Phone Number JAYLEEN LEAL [phone] [place] [address] * POCT glucose (01/01/2025 11:02 AM CDT) Glucose, POC 154 70 - 199 mg/dL POC Performer [id number] CERNER CH Blood 01/01/2025 11:0 2 AM CDT 01/01/2025 11:02 AM CDT Dago Colunga MD LAB POCT ORDERABLES - DEVICE Final Result Performing Organization Address City/[facility]/ZIP Co de Phone Number JAYLEEN LEAL [phone] [facility] [place] [address] * POCT glucose (12/31/2024 11:31 AM CDT) Glucose, POC 134 70 - 199 mg/dL POC Performer [id number] CERNER Blood 12/31/2024 11:3 1 AM CDT 12/31/2024 11:31 AM CDT Edson Lepe II, MD LAB POCT ORDERABLES - DEVICE Final Result Performing Organization Address [facility] Co de Phone Number JAYLEEN [phone] [place] [address] * POCT glucose (12/31/2024 9:53 AM CDT) Glucose, POC 119 70 - 199 mg/dL POC Performer [id number] [facility] Blood 12/31/2024 9:53 AM CDT 12/31/2024 9:53 AM CDT Edson Lepe II, MD LAB POCT ORDERABLES - DEVICE Final Result Performing Organization Address [facility] de Phone Number JAYLEEN [address] [facility] [place] [address] * eGFR (12/05/2024 10:00 PM CDT) eGFR [...] Johan COFFEY LAB BLOOD ORDERABLES Final Result [facility] [address] Department [place] [address] * Differential, auto (12/05/2024 10:00 PM CDT) Neutrophil abs 4.26 1.50 - 6.50 K/cumm Imm gran abs 0.01 0.00 - 0.10 K/cumm [facility] Lymphocyte abs 2.86 0.80 - 3.30 K/cumm [facility] Monocyte abs 0.71 0.20 - 0.80 K/cumm [facility] Eosinophil abs 0.08 0.00 - 0.50 K/cumm [facility] Basophil abs 0.02 0.00 - 0.10 K/cumm [facility] Neutrophil pct 53.7 % [facility] Comment: Interpretive Data Percent cell count reference ranges are not reported, since discordance with absolute values may lead to misinterpretation of CBC data. Current Interpretive Data was last revised on 2017. Imm gran pct 0.1 % [facility] Comment: Interpretive Data Percent cell count reference ranges are not reported, since discordance with absolute values may lead to misinterpretation of CBC data. Current Interpretive Data was last revised on 2017. Lymphocyte pct 36.0 % [facility] Comment: Interpretive Data Percent cell count reference ranges are not reported, since discordance with absolute values may lead to misinterpretation of CBC data. Current Interpretive Data was last revised on 2017. Monocyte pct 8.9 % [facility] Comment: Interpretive Data Percent cell count reference ranges are not reported, since discordance with absolute values may lead to misinterpretation of CBC data. Current Interpretive Data was last revised on 2017. Eosinophil pct 1.0 % [facility] Comment: Interpretive Data Percent cell count reference ranges are not reported, since discordance with absolute values may lead to misinterpretation of CBC data. Current Interpretive Data was last revised on 2017. Basophil pct 0.3 % [facility] Comment: Interpretive Data Percent cell count reference ranges are not reported, since discordance with absolute values may lead to misinterpretation of CBC data. Current Interpretive Data was last revised on 2017. Blood 12/05/2024 10:0 0 PM CDT 12/05/2024 10:00 PM CDT Johan COFFEY LAB BLOOD ORDERABLES Final Result Performing Organization Address City/[facility]/ZIP Co de Phone Number JAYLEEN LEAL [address] Department of Laboratories [place], [place] [id number] * Thyroid Function Rochelle (12/05/2024 10:00 PM CDT) Pathologist [facility] Emergency Department TSH 1.00 0.30 - 4.20 mcIUnit/mL Blood 12/05/2024 10:0 0 PM CDT 12/05/2024 10:00 PM CDT Johan COFFEY LAB BLOOD ORDERABLES Final Result Performing Organization Address City/[facility] Co de Phone Number JAYLEEN LEAL [address] [place] [address] * CBC with auto differential (12/05/2024 10:00 PM CDT) Pathologist [facility] Emergency Department WBC 7.94 3.80 - 9.90 K/cumm Hgb 14.3 13.0 - 17.5 g/dL [facility] Hct 42.1 38.9 - 50.3 % [facility] Plt 250 150 - 400 K/cumm [facility] MPV 10.2 9.1 - 12.3 fL [facility] RBC 4.74 4.30 - 5.80 M/cumm [facility] MCV 88.8 81.3 - 96.4 fL [facility] MCH 30.2 27.1 - 33.3 pg [facility] MCHC 34.0 32.3 - 35.7 g/dL [facility] RDW CV 11.5 11.1 - 14.9 % [facility] RDW SD 36.7 35.7 - 48.1 fL [facility] NRBC abs 0.00 0.00 - 0.01 K/cumm [facility] Blood Venous blood specimen / Unknown 12/05/2024 10:00 PM CDT 12/05/2024 10:00 PM CDT Johan COFFEY LAB BLOOD ORDERABLES Final Result NENAARTIE LEAL [address] [place] [address] * Phosphorus (12/05/2024 10:00 PM CDT) Pathologist [facility] Emergency Department Phosphorus, pl 3.7 2.3 - 4.5 mg/dL Blood 12/05/2024 10:0 0 PM CDT 12/05/2024 10:00 PM CDT Johan COFFEY LAB BLOOD ORDERABLES Final Result Performing Organization Address City/[facility] Co de Phone Number NENAARTIE LEAL [address] [facility] [place] [address] * Magnesium (12/05/2024 10:00 PM CDT) [facility] Magnesium 2.2 1.4 - 2.5 mg/dL Blood 12/05/2024 10:0 0 PM CDT 12/05/2024 10:00 PM CDT Johan COFFEY LAB BLOOD ORDERABLES Final Result Performing Organization Address City/[facility]/ZIP Co de Phone Number NENAARTIE LEAL [address] [facility] [place] [address] * Comprehensive metabolic panel (12/05/2024 10:00 PM CDT) Pathologist [facility] Department Sodium 140 135 - 145 mmol/L Potassium, [...] COFFEY LAB BLOOD ORDERABLES Final Result JAYLEEN [address] Department [place] [address] * CT Head WO Contrast (12/05/2024 6:39 [...] * Hepatitis panel, acute (07/14/2021 10:25 AM SALESPERSON [employer]) Hep A IgM Nonreactive Nonreactive JAYLEEN LEAL [...] Nonreactive JAYLEEN Blood 07/14/2021 10:2 5 AM SALESPERSON [employer] 07/14/2021 3:26 PM [employer]ESPERSON [employer] Edson Lepe II, MD LAB MICROBIOLOGY - GENERAL O RDERABLES Final Result NENAARTIE [address] [place] [address] from Last 3 Months or Most Recently Relevant to Health Maintenance Insurance [facility] Advance Directives For more information, please contact: [phone] * Full Code (Latest Code Status on File) Date Activated Date Inactivated Comments 05/29/2021 1:10 AM 06/03/2021 10:16 PM Care Teams Manager Personal Relationship Specialty [place] [phone] [address] [facility] [address] [place] [address] PCP - General Family Medicine 07/25/23 [place] [id number] [address] [facility] [address] [place] [address] Consulting Physician Neurology 06/03/21
--- OUTSIDE RECORDS SUMMARY | 2025-01-03 12:25 | XMS_ITS | Encounter Summary ---
Author Organization [facility] Address [address] [place] [address] Care Team Providers Care Academic Coach Name Role Phone Sherley ROMEO MD, Edson Dubose Unavailable [phone] Dago Colunga MD Primary Care Provide r Encounter Details Date Type Department Care Team (Late st Contact Info) Description 01/03/2025 Telephone [facility] Non-Oncology Infusion [address] [place] [address] Nancy Michaud RN Social History [...] week 06/01/2021 How often do you attend quaker or mu-ism serv ices? Never 06/01/2021 Do you belong to any clubs o r organizations such as quaker groups, unions, fraternal or athletic groups, or [...] place to sleep or slept in a mcfp (including now)? No 06/01/2021 PHQ-9 Answer Date Recorded PHQ-9 Total Score 0 08/21/2024 Personal Safety Answer Date Recorded Have you ever been in or are you currently in a harmful physical or emotional relationship or is someone making you feel afraid or unsafe? Denies 01/02/2025 Sex and Gender Information Value Date Recorded Sex Assigned at Not on file Legal Sex Male 9:21 AM TRACK SUPERINTENDENT Gender Identity Male 07/14/2021 9:18 AM TRACK SUPERINTENDENT Sexual Orientation Straight 07/14/2021 9: 18 AM TRACK SUPERINTENDENT documented as of this encounter Progress Notes [...] on filedocumented in this encounter Care Teams Academic Coach Relationship Specialty [place] [phone] [address] [facility] [address] [place] [address] PCP - General Family Medicine 07/25/23 [place] [address] [address] [facility] [address] [place] [address] Consulting Physician Neurology 06/03/21 documented as of this encounter
--- OUTSIDE RECORDS SUMMARY | 2025-01-03 12:25 | XMS_ITS | Referral Summary ---
Author Organization [facility] Physician Office Building [address] [place] [address] Care Team Providers Care Ware Tester Name Role Phone Sherley ROMEO MD, Edson Dubose Unavailable [phone] Dago Colunga MD Primary Care Provide r Encounters Date Type Department Care Team Description 01/03/2025 Telephone [facility] Non-Oncology Infusion [address] [place] [address] Nancy Michaud, SERA 01/02/2025 11:00 AM CDT Infusion [facility] Non-Oncology Infusion [address] [place] [address] Multiple sclerosis (HCC) (Primary Dx) 01/01/2025 Documentation [facility] Rehabilitation Services at [address] [place] [address] Avtar Rossi, PT Left Without Being Seen 01/01/2025 11:00 AM CDT Infusion [facility] Non-Oncology Infusion [address] [place] [address] Multiple sclerosis (HCC) (Primary Dx) 12/31/2024 10:00 AM CDT Infusion [facility] Non-Oncology Infusion [address] [place] [address] Multiple sclerosis (HCC) (Primary Dx) 12/26/2024 Orders Only [facility] Non-Oncology Infusion [address] [place] [address] Nnacy Michaud RN 12/26/2024 8:30 AM CDT Office [facility] [id number] [place] [address] [address], [place] [address] Edson Lepe II, MD Multiple sclerosis (HCC) (Primary Dx); Left hemiparesis (HCC) 12/19/2024 Telephone [facility] [address] [place] [address] [address], [place] [address] Edson Lepe II, MD 12/05/2024 11:45 PM CDT - 12/05/2024 11:46 PM CDT Emergency [facility] Emergency Department [address] [place] [address] Discharge Disposition: Left without being seen 12/05/2024 Nurse Triage Family Care at [address] [address] Dago Colunga MD 11/27/2024 3:20 PM CDT Office Visit [facility] [address] [place] [address] Medical Office Building [address] [place] [address] Nica Kim NP Tinnitus, unspecified laterality (Primary Dx); Multiple sclerosis (HCC); Stress 11/27/2024 2:45 PM CDT Procedure visit [facility] Otol[facility]ology [address] [place] [address] Medical Office Building 2 [address] [place] [address] Estrada Alaniz Au.D. Dizziness from Last 3 Months Allergies Active Allergy Reactions Criticality Noted Date Comments Cat Dander Sneezing Low 07/14/2021 Dog Dander Sneezing Low 07/14/2021 House Dust Sneezing Low 07/14/2021 Pollen Extracts Sneezing Low 07/14/2021 Spider Venom Rash Medium 07/14/2021 Venom-Wasp Shortness of breath High 07/14/2021 Medications omega 9-zya-mjz-fish oil (Fish OiL) 1,000 (120-180) mg capsule [...] 08/21/2024 Assessment & Plan (08/21/2024 8:54 AM MANAGER FIRE): BMI follow-up: Education provided Encounter for well adult exam without abnormal f indings 02/17/2022 Assessment & Plan (02/17/2022 9:33 PM CDT): Reviewed current problem list and reconciled Meds. Patient is up-to-date on his immunizations. Multiple sclerosis 05/29/2021 Assessment & Plan (08/21/2024 8:54 AM MANAGER FIRE): Management by Neurology teriflunomide 14 mg tablet daily Assessment & Plan (02/17/2023 9:45 PM CDT): Patient under the care of neurologist. However patient has been out his current Meds due to cost and loss of insurance coverage. Discussed [facility]. Patient reports episodes of weakness due to lack of Meds. Assessment & Plan (02/17/2022 9:35 PM CDT): Patient under the care of neurologist. Reviewed current Meds. Vision disturbance 05/28/2021 Assessment & Plan (02/17/2022 9:34 PM CDT): Patient under the care of transmission line engineer. Immunizations Immunization Administration Dates Next Due [...] week 06/01/2021 How often do you attend episcopal or jewish serv ices? Never 06/01/2021 Do you belong to any clubs o r organizations such as episcopal groups, unions, fraternal or athletic groups, or [...] place to sleep or slept in a skilled nursing (including now)? No 06/01/2021 PHQ-9 Answer Date Recorded PHQ-9 Total Score 0 08/21/2024 Personal Safety Answer Date Recorded Have you ever been in or are you currently in a harmful physical or emotional relationship or is someone making you feel afraid or unsafe? Denies 01/02/2025 Sex and Gender Information Value Date Recorded Sex Assigned at Not on file Legal Sex Male 9:21 AM MANAGER FIRE Gender Identity Male 07/14/2021 9:18 AM MANAGER FIRE Sexual Orientation Straight 07/14/2021 9: 18 AM MANAGER FIRE Last Filed Vital Signs Vital Sign Reading [...] CDT HEPATITIS PANEL, ACUTE Routine 10:25 AM MANAGER FIRE Multiple sclerosis (HCC) from Last 3 Months or Most Recently Relevant to Health Maintenance Results * POCT glucose (01/02/2025 12:43 PM CDT) Glucose, POC 107 70 - 199 mg/dL POC Performer [id number] CERNER CH Blood 01/02/2025 12:4 3 PM CDT 01/02/2025 12:43 PM CDT Dago Colunga MD LAB POCT ORDERABLES - DEVICE Final Result Performing Organization Address [facility] de Phone Number JAYLEEN LEAL [address] [address] [facility] [employer] [place], [place] [id number] * POCT glucose (01/02/2025 10:57 AM CDT) Glucose, POC 117 70 - 199 mg/dL POC Performer [id number] CERNER CH Blood 01/02/2025 10:5 7 AM CDT 01/02/2025 10:57 AM CDT Dago Colunga MD LAB POCT ORDERABLES - DEVICE Final Result Performing Organization Address [facility] de Phone Number JAYLEEN ELVIS [address] [address] [facility] [place] [address] * POCT glucose (01/01/2025 12:26 PM CDT) Glucose, POC 117 70 - 199 mg/dL POC Performer [id number] CERNER CH Blood 01/01/2025 12:2 6 PM CDT 01/01/2025 12:26 PM CDT Dago Colunga MD LAB POCT ORDERABLES - DEVICE Final Result Performing Organization Address [facility]/State/ZIP Co de Phone Number JAYLEEN LEAL [address] [address] [facility] [place] [address] * POCT glucose (01/01/2025 11:02 AM CDT) Glucose, POC 154 70 - 199 mg/dL POC Performer [id number] CERNER CH Blood 01/01/2025 11:0 2 AM CDT 01/01/2025 11:02 AM CDT Dago Colunga MD LAB POCT ORDERABLES - DEVICE Final Result Performing Organization Address [facility] Co de Phone Number JAYLEEN LEAL [address] [address] [facility] [place] [address] * POCT glucose (12/31/2024 11:31 AM CDT) Glucose, POC 134 70 - 199 mg/dL POC Performer [id number] CERNER CH Blood 12/31/2024 11:3 1 AM CDT 12/31/2024 11:31 AM CDT Edson Lepe II, MD LAB POCT ORDERABLES - DEVICE Final Result Performing Organization Address [facility] Co de Phone Number NENAARTIE LEAL [address] [address] [facility] [place] [address] * POCT glucose (12/31/2024 9:53 AM CDT) Glucose, POC 119 70 - 199 mg/dL POC Performer [id number] CERNER CH Blood 12/31/2024 9:53 AM CDT 12/31/2024 9:53 AM CDT Edson Lepe II, MD LAB POCT ORDERABLES - DEVICE Final Result Performing Organization Address [facility] Co de Phone Number JAYLEEN LEAL [address] [address] [facility] [place] [address] * eGFR (12/05/2024 10:00 PM CDT) Pathologist [facility] eGFR >90 >=60 mL/min/1. 73 m2 Comment: [...] COFFEY LAB BLOOD ORDERABLES Final Result JAYLEEN [address] [address] [place] [address] * Differential, auto (12/05/2024 10:00 PM CDT) Pathologist [facility] Neutrophil abs 4.26 1.50 - 6.50 K/cumm Imm gran abs 0.01 0.00 - 0.10 K/cumm [facility] Lymphocyte abs 2.86 0.80 - 3.30 K/cumm [facility] Monocyte abs 0.71 0.20 - 0.80 K/cumm [facility] Eosinophil abs 0.08 0.00 - 0.50 K/cumm [facility] Basophil abs 0.02 0.00 - 0.10 K/cumm [facility] Neutrophil pct 53.7 % [facility] Comment: Interpretive Data Percent cell count [...] revised on 2017. Basophil pct 0.3 % [facility] Comment: Interpretive Data Percent cell count reference ranges are not reported, since discordance with absolute values may lead to misinterpretation of CBC data. Current Interpretive Data was last revised on 2017. Blood 12/05/2024 10:0 0 PM CDT 12/05/2024 10:00 PM CDT Johan COFFEY LAB BLOOD ORDERABLES Final Result Performing Organization Address [facility]/ZIP Co de Phone Number [facility] [address] [address] Department [place] [address] * Thyroid Function [place] (12/05/2024 10:00 PM CDT) TSH 1.00 0.30 - 4.20 mcIUnit/mL Blood 12/05/2024 10:0 0 PM CDT 12/05/2024 10:00 PM CDT Johan COFFEY LAB BLOOD ORDERABLES Final Result Performing Organization Address City/[facility]/ZIP Co de Phone Number JAYLEEN LEAL [address] [address] [place] [place] [address] * CBC with auto differential (12/05/2024 10:00 PM CDT) [facility] WBC 7.94 3.80 - 9.90 K/cumm Hgb 14.3 13.0 - 17.5 g/dL [facility] Hct 42.1 38.9 - 50.3 % [facility] Plt 250 150 - 400 K/cumm [facility] MPV 10.2 9.1 - 12.3 fL [facility] RBC 4.74 4.30 - 5.80 M/cumm [facility] MCV 88.8 81.3 - 96.4 fL [facility] MCH 30.2 27.1 - 33.3 pg [facility] MCHC 34.0 32.3 - 35.7 g/dL [facility] RDW CV 11.5 11.1 - 14.9 % [facility] RDW SD 36.7 35.7 - 48.1 fL [facility] NRBC abs 0.00 0.00 - 0.01 K/cumm [facility] Blood Venous blood specimen / Unknown 12/05/2024 10:00 PM CDT 12/05/2024 10:00 PM CDT Johan COFFEY LAB BLOOD ORDERABLES Final Result Performing Organization Address City/[facility]/ZIP Co de Phone Number JAYLEEN LEAL [address] [address] [place] [place] [address] * Phosphorus (12/05/2024 10:00 PM CDT) [facility] Phosphorus, pl 3.7 2.3 - 4.5 mg/dL Blood 12/05/2024 10:0 0 PM CDT 12/05/2024 10:00 PM CDT Johan COFFEY LAB BLOOD ORDERABLES Final Result JAYLEEN LEAL [address] [address] [facility] [place] [address] * Magnesium (12/05/2024 10:00 PM CDT) Magnesium 2.2 1.4 - 2.5 mg/dL Blood 12/05/2024 10:0 0 PM CDT 12/05/2024 10:00 PM CDT Johan COFFEY LAB BLOOD ORDERABLES Final Result CERNER [address] [address] [place] [address] * Comprehensive metabolic panel (12/05/2024 10:00 PM [...] LAB BLOOD ORDERABLES Final Result JAYLEEN LEAL [address] [address] [place] [address] * CT Head WO Contrast (12/05/2024 6:39 [...] * Hepatitis panel, acute (07/14/2021 10:25 AM MANAGER FIRE) Hep A IgM Nonreactive Nonreactive [facility] Comment: Interpretive Data: If Hep A IgM Ab is reported as Equivocal, a new sample should be drawn in two weeks for testing. Current interpretive data was last revised on 19. Hep B core IgM Nonreactive Nonreactive [facility] Comment: Interpretive Data If HepB Core IgM Ab is reported as Equivocal, a new sample should be drawn in two weeks for testing. Current interpretive data was last revised on 19. Hep C Ab Nonreactive Nonreactive [facility] Comment: Interpretive Data Nonreactive: Antibodies to [...] last revised on 2019. HepBsAg Nonreactive Nonreactive [facility] Blood 07/14/2021 10:2 5 AM MANAGER FIRE 07/14/2021 3:26 PM MANAGER FIRE Edson Lepe II, MD LAB MICROBIOLOGY - GENERAL O RDERABLES Final Result JAYLEEN [address] [address] [place] [address] from Last 3 Months or Most Recently Relevant to Health Maintenance Insurance [facility] Advance Directives For more information, please contact: [phone] * Full Code (Latest Code Status on File) Date Activated Date Inactivated Comments 05/29/2021 1:10 AM 06/03/2021 10:16 PM Care Teams Ware Tester Relationship Specialty [place] [address] [address] [facility] [address] [place] [address] PCP - General Family Medicine 07/25/23 [place] [address] [address] [facility] [address] [place] [address] Consulting Physician Neurology 06/03/21
--- OUTSIDE RECORDS SUMMARY | 2025-01-03 12:25 | XMS_ITS | Encounter Summary ---
Author Organization [facility] Healthcare Address [address] [place] [address] Care Team Providers Care River Tester Name Role Phone Sherley ROMEO MD, Edson Dubose Unavailable Dago Colunga MD Primary Care Provide r Reason for Visit * Reason Comments OP Infusion Encounter Details Date Type Department Care Team (Late st Contact Info) Description 01/02/2025 11:00 AM CDT Infusion [facility] Non-Oncology Infusion [address] [place] [address] Multiple sclerosis (HCC) (Primary Dx) Social History [...] week 06/01/2021 How often do you attend muslim or presybeterian serv ices? Never 06/01/2021 Do you belong to any clubs o r organizations such as muslim groups, unions, fraternal or athletic groups, or [...] place to sleep or slept in a penitentiary (including now)? No 06/01/2021 PHQ-9 Answer Date Recorded PHQ-9 Total Score 0 08/21/2024 Personal Safety Answer Date Recorded Have you ever been in or are you currently in a harmful physical or emotional relationship or is someone making you feel afraid or unsafe? 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 Gender Identity Male 07/14/2021 9:18 AM MANUFACTURING ENGINEERING DIRECTOR Sexual Orientation Straight 07/14/2021 9: 18 AM MANUFACTURING ENGINEERING DIRECTOR documented as of this encounter Last Filed [...] * POCT glucose (01/02/2025 12:43 PM CDT) [facility] Glucose, POC 107 70 - 199 mg/dL POC Performer [id number] JAYLEEN Blood 01/02/2025 12:4 3 PM CDT 01/02/2025 12:43 PM CDT Dago Colunga MD LAB POCT ORDERABLES - DEVICE Final Result JAYLEEN LEAL [address] [address] [facility] [place] [address] * POCT glucose (01/02/2025 10:57 AM CDT) Glucose, POC 117 70 - 199 mg/dL POC Performer [id number] JAYLEEN LEAL Blood 01/02/2025 10:5 7 AM CDT 01/02/2025 10:57 AM CDT us Dago Colunga MD LAB POCT ORDERABLES - DEVICE Final Result Performing Organization Address City/[facility]/ZIP Co de Phone Number NENAARTIE LEAL [address] [address] [facility] [place] [address] documented in this encounter Visit Diagnoses Diagnosis [...] First Orde red Date ONCBCN NURSING COMMUNICATION [id number] 0 01/02/2025 documented in this encounter Care Teams River Tester Relationship Specialty [place] [address] [address] PCP - General Family Medicine 07/25/23 [place] [address] [address] Consulting Physician Neurology 06/03/21 documented as of this encounter
--- OUTSIDE RECORDS SUMMARY | 2025-01-03 12:25 | XMS_ITS | Encounter Summary ---
Author Organization [facility] Healthcare Address [address] [place] [address] Care Team Providers Care Balancer Scale Name Role Phone Sherley ROMEO MD, Edson Dubose Unavailable [phone] Dago Colunga MD Primary Care Provide r Reason for Visit * Reason Onset Date Comments neuroligic 12/05/2024 neurologic deficit 12/05/2024 Encounter Details Date Type Department Care Team (Late st Contact Info) Description 12/05/2024 Nurse Triage Family Care at [facility] [address] [address] [place] [address] [facility] [address] [place] [address] Social History Tobacco Use Types [...] week 06/01/2021 How often do you attend anglican or restoration serv ices? Never 06/01/2021 Do you belong to any clubs o r organizations such as anglican groups, unions, fraternal or athletic groups, or [...] place to sleep or slept in a nursing home (including now)? No 06/01/2021 PHQ-9 Answer Date Recorded PHQ-9 Total Score 0 08/21/2024 Personal Safety Answer Date Recorded Have you ever been in or are you currently in a harmful physical or emotional relationship or is someone making you feel afraid or unsafe? Denies 12/05/2024 Sex and Gender Information Value Date Recorded Sex Assigned at Not on file Legal Sex Male 9:21 AM AD SETTER Gender Identity Male 07/14/2021 9:18 AM AD SETTER Sexual Orientation Straight 07/14/2021 9: 18 AM AD SETTER documented as of this encounter Miscellaneous Notes [...] just parts of the leg, thigh to long term down leg, arm, hand, pinky and last [...] emergency to the triager Protocols used: Neurologic [id number] * Telephone Encounter - Estrella Sandoval RN [...] on filedocumented in this encounter Care Teams Balancer Scale Relationship Specialty [place] [address] [address] [facility] [address] [place] [address] PCP - General Family Medicine 07/25/23 [place] [address] [address] [facility] [address] [place] [address] Consulting Physician Neurology 06/03/21 documented as of this encounter
--- OUTSIDE RECORDS SUMMARY | 2025-01-03 12:25 | XMS_ITS | Encounter Summary ---
Author Organization [facility] Address [address] [place] [address] Care Team Providers Care Circus Hand Name Role Phone Unavailable Primary Care Provider [...]
[2025-01-03 12:26] LABS: Add Urine Microscopic? YES; Appearance Urine Clear (Clear); Bacteria Urine None Seen /hpf; Bilirubin Urine Negative (Negative); Blood Urine Negative (Negative); Color Urine Yellow (Yellow); Glucose Urine UA Negative (Negative); Ketones Urine Negative (Negative); Leukocyte Esterase Ur Negative LEU/UL (Negative); Nitrate Urine Negative (Negative); Non Pathogenic Casts 0-2; Protein Urine Trace mg/dL (Negative); RBC Urine 0-2 /hpf (0-2); Specific Grav Ur 1.041 (1.001-1.035); Squamous Epithelial Cell Urine None Seen /hpf (Few); WBC Urine 0-5 /hpf (0-3); pH Urine 6.5 (5.0-9.0)
[2025-01-03 13:30] VITALS: BP 125/66; PULSE 50; RESP 16; O2SAT 99
[2025-01-03] MEDS: FAMOTIDINE 20 MG/2 ML VIAL IV PUSH (13:34)
[2025-01-03] MEDS: SODIUM CHLORIDE 0.9% IV 1,000 ML 999 ML IV CONT (13:35)
--- NOTE | 2025-01-03 13:41 | ED.ABDPAIN ---
HPI - Abdominal Pain General Chief Complaint: Abdominal Pain Stated Complaint: LLQ pain Time Seen by Provider: 01/03/25 12:04 History of Present Illness HPI narrative: Patient is a 24-year-old male who presents ER with left-sided abdominal pain. Located lower quadrant. Feels like it is in the shape of an L. normal bowel function normal urinary function. No alleviating factors nor aggravating factors. He is currently receiving a 5 day treatment of Solu-Medrol infusion 1 g, today is day 4 and he has not yet had the fusion. This is for his MS. He does feel like the experience dyspepsia earlier in his upper abdomen separate harness L-shaped discomfort. Related Data Allergies Allergy/AdvReac Type Severity Reaction Status Date / Time No Known Allergies Allergy Verified 12/31/24 12:52 Review of Systems Review of Systems: All systems reviewed & are unremarkable except as noted in HPI and below Constitutional: Constitutional: Reports no additional constitutional complaints ENT: Reports system reviewed and no additional complaints, except as documented Cardiovascular: Cardiovascular: Reports no additional cardiovascular complaints Respiratory: Respiratory: Reports no additional respiratory complaints Gastrointestinal: Gastrointestinal: Reports no additional gastrointestinal complaints [facility] Past Medical History Medical History (Updated 01/03/25 @ 13:44 by Jose Keyes MD) Multiple sclerosis Social History Social History (Updated 12/31/24 @ 13:00 by Barry Carpenter) Smoking status: Never smoker Second hand tobacco smoke exposure: No Alcohol intake: never Substance use: never Education: High School Diploma/GED Difficulty w/ Childcare or Family Care: No Living arrangements: with family Occupation/Education: unemployed Gender identity (if verbalized by the patient): Male Sexual Orientation (if Verbalized by the Patient): Straight or Heterosexual Spiritual care concerns: No Exam Narrative: GENERAL: Well-appearing, well-nourished, and in no acute distress. HEAD: Normocephalic, atraumatic. ENT: Mucous membranes moist. CHEST: Clear to auscultation. No respiratory distress. HEART: Regular rate and rhythm. Normal peripheral pulses. ABDOMEN: Soft, nontender, nondistended. EXTREMITIES: Normal range of motion. No edema. SKIN: Warm, dry, no rash. NEURO: Alert and oriented x3. PSYCH: Normal mood and affect. Course Course Emergency Course: Mild leukocytosis which could be attributed to his steroid infusions. Imaging without acute process. Exam benign. Appropriate for discharge home. Patient mildly dry with elevated BUN. Received 1 L of fluid. Follow-up with PCP. Vital Signs Vital signs: Vital Signs Temperature 97.9 F 01/03/25 11:01 Pulse Rate 61 01/03/25 11:01 Respiratory Rate 15 01/03/25 11:01 Blood Pressure 123/70 01/03/25 11:01 Pulse Oximetry 100 01/03/25 11:01 Oxygen Delivery Room Air 01/03/25 11:01 Temperature 97.9 F 01/03/25 11:01 Pulse Rate 50 L 01/03/25 13:30 Respiratory Rate 16 01/03/25 13:30 Blood Pressure 125/66 01/03/25 13:30 Pulse Oximetry 99 01/03/25 13:30 Oxygen Delivery Room Air 01/03/25 11:01 MDM - Abdominal Pain Lab Data 01/03/25 11:35 01/03/25 11:35 Labs: Lab Results 01/03/25 01/03/25 Range/Units 11:35 12:14 WBC 12.4 H (4.5-10.0) K/mm3 RBC 4.55 L (4.6-6.20) M/mm3 Hgb 13.6 L (14.0-18.0) g/dL Hct 41.4 L (42.0-52.0) % MCV 91.0 (80-100) fl MCH 29.9 (26-34) pg MCHC 32.9 (32-36) g/dl RDW 11.7 (11.5-14.5) % Plt Count 244 (150-375) k/mm3 MPV 10.6 H (7.4-10.4) fl Immature Gran % (Auto) 0.6 H (0-0.5) % Neut % (Auto) 88.8 H (45.5-73.1) % Lymph % (Auto) 6.2 L (18.3-44.2) % [place] % (Auto) 4.3 (2.6-8.5) % Eos % (Auto) 0.0 (0-4.4) % Baso % (Auto) 0.1 L (0.2-1.2) % Lymph # (Auto) 0.77 L (0.9-3.2) K/mm3 [place] # (Auto) 0.5 (0.1-0.6) K/mm3 Eos # (Auto) 0.0 (0-0.3) K/mm3 Baso # (Auto) 0.0 (0.0-0.1) K/mm3 Abs Immat Gran (auto) 0.07 H (0.00-0.031) K/mm3 Absolute Neuts (auto) 11.0 H (1.3-6.7) K/mm3 Absolute Nucleated RBC 0.000 (0.0-0.012) K/mm3 Nucleated RBC % 0.0 (0.0-0.2) % Sodium 139 (137-145) mmol/L Potassium 3.7 (3.4-5.0) mmol/L Chloride 103 (98-107) mmol/L Carbon Dioxide 29 (22-30) mmol/L Anion Gap 7 (4-12) mmol/L BUN 27 H D (9-20) mg/dL Creatinine 0.83 (0.7-1.3) mg/dL Estim Creat Clear Calc 164 ml/min Estimated GFR > 60 (59 - ) Glucose 151 H (65-110) mg/dL Calcium 9.2 (8.4-10.2) mg/dL Total Bilirubin 1.0 (0.2-1.3) mg/dL AST 26 (17-59) U/L ALT 31 (6-50) U/L Alkaline Phosphatase 54 (38-126) U/L Total Protein 7.0 (6.3-8.2) g/dL Albumin 4.3 (3.5-5.1) g/dL Lipase 86 (23-300) U/L Urine Color Yellow (Yellow) Urine Appearance Clear (Clear) Urine pH 6.5 (5.0-9.0) Ur Specific [place] 1.041 H (1.001-1.035) Urine Protein Trace (Negative) mg/dL Urine Glucose (UA) Negative (Negative) mg/dL Urine Ketones Negative (Negative) mg/dL Ur Blood (Man) Negative (Negative) Urine Nitrate Negative (Negative) Urine Bilirubin Negative (Negative) Urine Urobilinogen 1.0 (<2.0) mg/dL Leukocyte Esterase Rfl Negative (Negative) QUIANA/UL Urine RBC 0-2 (0-2) /hpf Urine WBC 0-5 (0-3) /hpf Ur Squamous Epith Cells None seen (Few) /hpf Urine Bacteria None seen /hpf Urine Casts 0-2 Imaging Data Radiologist's impression: ITS Impressions Abdomen/Pelvis CT 01/03/25 13:08 Impression: No significant abnormalities seen. Discharge Plan Discharge Clinical Impression: Abdominal pain, acute, left lower quadrant Patient Disposition: Home Condition: Stable Instructions: Acute Abdominal Pain (ED) Additional Instructions: Return to the emergency department if you develop severe abdominal pain, severe nausea and vomiting to the point where you are unable to keep down fluids, if you develop chest pain or difficulty breathing, blood in your stool, dizziness or fainting, or if you develop any other new or concerning symptoms as these could be signs of more serious medical illness. Try to stay well hydrated. Patient Language: Bulgarian Follow-up/Referrals: UNKNOWN,DOCTOR [Primary Care Provider] - 1 Week
== END 2025-01-03 14:06 | disposition home or self-care (01) ==
PROVIDERS: Emergency Medicine; Emergency Provider Emergency Medicine
DX: R10.32 Left lower quadrant pain (principal); G35 Multiple sclerosis
CPT/HCPCS: 36415; 74177; 80053; 81001; 83690; 85025; 96361; 96374; 99284; J7030; Q9967